=== PATIENT | male | born 1960 | race African-American/Black ===

== ENCOUNTER 2019-01-18 05:01 | Inpatient (IN) | payer MEDICAID ==
[~2019-01-18] VITALS: Ht 195.6 cm; Wt 117.5 kg
[2019-01-18] VITALS (19 sets, daily range): BP systolic 140–173; BP diastolic 73–110
[2019-01-18] MEDS ORDERED: METHYLPREDNISOLONE SOD SUCC 125 MG/2 ML VIAL IV STA (05:44)
[2019-01-18] MEDS ORDERED: IPRATROPIUM BROMIDE (0.02%) 0.5MG/2.5ML NEB HHN STA (05:44)
[2019-01-18] MEDS ORDERED: ONDANSETRON HCL 4MG/2ML INJ IV STA (05:44)
[2019-01-18] MEDS ORDERED: MAGNESIUM 2 G PREMIX 50 ML IV ONE (05:45)
[2019-01-18] MEDS ORDERED: ALBUTEROL (0.083%) 2.5MG/3ML NEB HHN SCH (06:00)
[2019-01-18 06:03] LABS: BG BASE EXCESS -2.7 mmol/L (-2.0-2.0); BG CARBOXYHEMOGLOBIN 0.9 % (0.5-1.5); BG DEOXYHEMOGLOBIN 4.5 % (0.0-5.0); BG FRACTION INSPIRED OXYGEN 40; BG HCO3 ACT 21.7 mmol/L (22.0-26.0); BG METHEMOGLOBIN 0.1 % (0.0-1.5); BG OXYGEN SATURATION 95.5 % (92.0-98.5); BG OXYHEMOGLOBIN 94.5 % (94.0-97.0); BG PCO2 36.8 mmHg (35.0-45.0); BG PH 7.389 (7.350-7.450); BG PO2 79.3 mmHg (75.0-100.0); BG SAMPLE SITE RIGHT RADIAL; BG TOTAL HEMOGLOBIN 13.7 g/dL (12.0-18.0); BG VENT MODE NASAL CANNULA
[2019-01-18 06:17] LABS: BASOPHILS % 0.4 % (0.0-2.0); EOSINOPHILS % 1.6 % (0.0-5.0); HEMATOCRIT. 40.7 % (42.0-52.0); HEMOGLOBIN. 13.4 g/dL (14.0-18.0); LYMPHOCYTES % 16.8 % (20.0-50.0); MEAN CORPUSCULAR HEMOGLOBIN 30.1 pg (28.0-32.0); MEAN CORPUSCULAR VOLUME 91.5 fL (80.0-94.0); MEAN PLATELET VOLUME 9.1 fl (7.4-10.4); MONOCYTES % 7.3 % (2.0-8.0); NEUTROPHILS % 73.9 % (40.0-76.0); PLATELET 204 x1000/uL (130-400); RED BLOOD CELL COUNT 4.44 mill/uL (4.7-6.1); RED CELL DISTRIBUTION WIDTH 14.5 % (11.6-14.6)
[2019-01-18 06:24] LABS: CHLORIDE 108 mEq/L (98-107)
[2019-01-18] MEDS ORDERED: SODIUM CHLORIDE 0.9% 1000ML BAG (SEPSIS BOLUS) IV ONE (06:30)
[2019-01-18] MEDS ORDERED: PIPERACILLIN/TAZ 3.375G PREMIX 50 ML IV ONE (06:30)
[2019-01-18] MEDS ORDERED: VANCOMYCIN 1 G PREMIX 200 ML IV ONE (06:30)
[2019-01-18] MEDS ORDERED: IPRATROPIUM/ALBUTEROL 0.5-3(2.5)MG/3ML NEB HHN PRN ×2 (07:45→12:30)
[2019-01-18] MEDS ORDERED: MAGNESIUM/ALUMINUM HYDROXIDE/SIMETHICONE 30ML UDC PO PRN (07:45)
[2019-01-18] MEDS ORDERED: ONDANSETRON HCL 4MG/2ML INJ IV PRN (07:45)
[2019-01-18] MEDS ORDERED: DOCUSATE SODIUM 100MG CAPSULE PO PRN (07:45)
[2019-01-18] MEDS ORDERED: PIPERACILLIN/TAZ 3.375G PREMIX 50 ML IV SCH (07:45)
[2019-01-18 07:54] LABS: PHOSPHORUS 3.3 mg/dL (2.5-4.9)
[2019-01-18] MEDS ORDERED: NICARDIPINE 40MG/200ML PREMIX 200 ML IV SCH (08:15)
[2019-01-18 11:10] LABS: CLARITY URINE CLEAR (CLEAR); COLOR URINE YELLOW (YELLOW); KETONES URINE NEGATIVE (NEGATIVE); LEUKOCYTE ESTERASE URINE NEGATIVE (NEGATIVE); NITRITE URINE NEGATIVE (NEGATIVE); OCCULT BLOOD URINE 1+ (NEGATIVE); PROTEIN URINE 2+ (NEGATIVE); SPECIFIC GRAVITY URINE 1.013 (1.005-1.030); UROBILINOGEN URINE 0.2 E.U./dL (0.2-1.0)
[2019-01-18 11:39] LABS: *AMPHETAMINES SCREEN URINE PRESUMTIVE POSITIVE (NEGATIVE)
[2019-01-18 11:40] LABS: *BARBITURATES SCREEN URINE NEGATIVE (NEGATIVE); *BENZODIAZEPINES SCREEN URINE NEGATIVE (NEGATIVE); *COCAINE SCREEN URINE PRESUMTIVE POSITIVE (NEGATIVE); CANNABINOID URINE SCREEN PRESUMTIVE POSITIVE (NEGATIVE); METHADONE URINE SCREEN NEGATIVE (NEGATIVE); OPIATES URINE SCREEN NEGATIVE (NEGATIVE)
[2019-01-18 11:42] LABS: PHENCYCLIDINE URINE SCREEN NEGATIVE (NEGATIVE)
[2019-01-18 12:39] LABS: BG BILEVEL POS AIRWAY PRESSURE 15/5; BG VENT RATE 16 set
[2019-01-18 12:48] LABS: CREATINE KINASE 401 IU/L (39-308)
[2019-01-18] MEDS ORDERED: FUROSEMIDE 40MG/4ML VIAL IVP NR (13:00)
[2019-01-18 13:23] LABS: BG SAMPLE SITE Right Radial
[2019-01-18 13:24] LABS: BG FRACTION INSPIRED OXYGEN 40; BG VENT MODE MASK-BIPAP; BG VENT RATE 16 set
[2019-01-18 13:25] LABS: BG BILEVEL POS AIRWAY PRESSURE 15/5; BG PCO2 39.4 mmHg (35.0-45.0); BG PH 7.305 (7.350-7.450)
[2019-01-18 13:26] LABS: BG BASE EXCESS -6.6 mmol/L (-2.0-2.0); BG CARBOXYHEMOGLOBIN 0.8 % (0.5-1.5); BG HCO3 ACT 19.2 mmol/L (22.0-26.0); BG OXYGEN SATURATION 97.9 % (92.0-98.5); BG TOTAL HEMOGLOBIN 14.5 g/dL (12.0-18.0)
[2019-01-18 13:27] LABS: BG DEOXYHEMOGLOBIN 2.1 % (0.0-5.0); BG METHEMOGLOBIN 0.1 % (0.0-1.5)
[2019-01-18] MEDS ORDERED: NITROGLYCERIN OINT 1GM/INCH UDPKT TD NR (16:45)
[2019-01-18] MEDS ORDERED: LOSARTAN POTASSIUM 50 MG TABLET PO NR (18:00)
[2019-01-18] MEDS: ENOXAPARIN 30MG/0.3ML SYR SUBCUT SCH (18:12)
[2019-01-18] MEDS ORDERED: HYDRALAZINE HCL 25MG TABLET PO NR (18:15)
[2019-01-18] MEDS ORDERED: AMLODIPINE 5MG TABLET PO NR (18:15)
[2019-01-18] MEDS: AMLODIPINE 5MG TABLET PO SCH (21:29)
[2019-01-18] MEDS: NICOTINE 14MG PATCH TD SCH (21:29)
[2019-01-18] MEDS: NICARDIPINE 50 MG in SODIUM CHLORIDE 0.9% 230 ML IV PRN (21:30)
[2019-01-18] MEDS: HYDRALAZINE HCL 25MG TABLET PO SCH (22:08)
[2019-01-18] MEDS: NITROGLYCERIN OINT 1GM/INCH UDPKT TD SCH (22:08)
[2019-01-18] MEDS: PIPERACILLIN/TAZOBACTAM 3.375 G in DEXT 5% WATER 100 ML IV SCH (22:08)
[2019-01-18] MEDS ORDERED: VANCOMYCIN 2,000 MG in DEXT 5% WATER 500 ML IV NR (23:00)
[2019-01-19] VITALS (94 sets, daily range): BP systolic 98–191; BP diastolic 55–106
[2019-01-19] MEDS: IPRATROPIUM/ALBUTEROL 0.5-3(2.5)MG/3ML NEB HHN SCH ×6 (00:10→20:48)
[2019-01-19] MEDS: ACETAMINOPHEN 325MG TABLET PO PRN ×2 (00:55→09:38)
[2019-01-19] MEDS: PIPERACILLIN/TAZOBACTAM 3.375 G in DEXT 5% WATER 100 ML IV SCH ×4 (04:58→21:01)
[2019-01-19] MEDS: NICARDIPINE 50 MG in SODIUM CHLORIDE 0.9% 230 ML IV PRN ×4 (04:59→19:42)
[2019-01-19 05:03] LABS: BASOPHILS % 0.1 % (0.0-2.0); HEMATOCRIT. 39.5 % (42.0-52.0); HEMOGLOBIN. 12.9 g/dL (14.0-18.0); LYMPHOCYTES % 8.3 % (20.0-50.0); MEAN CORPUSCULAR HEMOGLOBIN 29.8 pg (28.0-32.0); MEAN CORPUSCULAR VOLUME 91.3 fL (80.0-94.0); MEAN PLATELET VOLUME 9.3 fl (7.4-10.4); MONOCYTES % 5.7 % (2.0-8.0); NEUTROPHILS % 85.9 % (40.0-76.0); PLATELET 220 x1000/uL (130-400); RED BLOOD CELL COUNT 4.33 mill/uL (4.7-6.1); RED CELL DISTRIBUTION WIDTH 14.6 % (11.6-14.6)
[2019-01-19 05:12] LABS: CHLORIDE 107 mEq/L (98-107)
[2019-01-19 05:22] LABS: LDL CHOLESTEROL 81 mg/dL (5-100)
[2019-01-19 05:23] LABS: HDL CHOLESTEROL 54 mg/dL (40-59)
[2019-01-19] MEDS: HYDRALAZINE HCL 25MG TABLET PO SCH ×3 (05:36→21:01)
[2019-01-19] MEDS: ENOXAPARIN 30MG/0.3ML SYR SUBCUT SCH ×2 (05:36→18:10)
[2019-01-19] MEDS: NITROGLYCERIN OINT 1GM/INCH UDPKT TD SCH ×3 (05:36→21:01)
[2019-01-19] MEDS: LOSARTAN POTASSIUM 50 MG TABLET PO SCH (09:39)
[2019-01-19] MEDS: NICOTINE 14MG PATCH TD SCH (09:39)
[2019-01-19] MEDS: AMLODIPINE 5MG TABLET PO SCH ×2 (09:40→21:01)
[2019-01-19] MEDS ORDERED: FUROSEMIDE 40MG/4ML VIAL IVP NR (09:45)
[2019-01-19] MEDS: CLONIDINE 0.2MG TABLET PO SCH ×2 (14:02→22:05)
[2019-01-19] MEDS ORDERED: VANCOMYCIN 1500MG in DEXTROSE 5% WATER 250ML IV SCH (18:00)
[2019-01-20] VITALS (52 sets, daily range): BP systolic 114–165; BP diastolic 53–127
[2019-01-20] MEDS: IPRATROPIUM/ALBUTEROL 0.5-3(2.5)MG/3ML NEB HHN SCH ×6 (00:53→21:05)
[2019-01-20] MEDS: PIPERACILLIN/TAZOBACTAM 3.375 G in DEXT 5% WATER 100 ML IV SCH ×3 (03:00→16:28)
[2019-01-20] MEDS: HYDRALAZINE HCL 25MG TABLET PO SCH ×3 (05:03→22:01)
[2019-01-20] MEDS: NITROGLYCERIN OINT 1GM/INCH UDPKT TD SCH ×3 (05:03→21:49)
[2019-01-20] MEDS: CLONIDINE 0.2MG TABLET PO SCH ×3 (05:03→21:48)
[2019-01-20] MEDS: ENOXAPARIN 30MG/0.3ML SYR SUBCUT SCH ×2 (05:03→16:38)
[2019-01-20 05:35] LABS: BASOPHILS % 0.2 % (0.0-2.0); EOSINOPHILS % 0.8 % (0.0-5.0); HEMOGLOBIN. 12.7 g/dL (14.0-18.0); LYMPHOCYTES % 14.5 % (20.0-50.0); MEAN CORPUSCULAR HEMOGLOBIN 29.8 pg (28.0-32.0); MEAN CORPUSCULAR VOLUME 91.8 fL (80.0-94.0); MEAN PLATELET VOLUME 9.4 fl (7.4-10.4); MONOCYTES % 5.4 % (2.0-8.0); NEUTROPHILS % 79.1 % (40.0-76.0); PLATELET 237 x1000/uL (130-400); RED BLOOD CELL COUNT 4.25 mill/uL (4.7-6.1); RED CELL DISTRIBUTION WIDTH 14.5 % (11.6-14.6)
[2019-01-20] MEDS: NICOTINE 14MG PATCH TD SCH (09:28)
[2019-01-20] MEDS: AMLODIPINE 5MG TABLET PO SCH ×2 (09:29→21:48)
[2019-01-20] MEDS: LOSARTAN POTASSIUM 50 MG TABLET PO SCH (09:29)
[2019-01-20] MEDS: CLONIDINE 0.1MG TABLET PO PRN (11:23)
[2019-01-20] MEDS ORDERED: VANCOMYCIN 1250MG in DEXTROSE 5% WATER 250ML IV SCH (12:00)
[2019-01-20] MEDS ORDERED: GUAIFENESIN-DM 200MG-20MG/10ML UDC PO PRN (17:15)
[2019-01-20] MEDS: AZITHROMYCIN 500 MG TABLET PO SCH (17:28)
[2019-01-20] MEDS ORDERED: CEFTRIAXONE 1 G PREMIX 50 ML IV SCH (18:30)
[2019-01-20] MEDS: CEFTRIAXONE 1 G PREMIX 50 ML IV SCH (21:58)
[2019-01-21] VITALS (7 sets, daily range): BP systolic 117–162; BP diastolic 61–96
[2019-01-21] MEDS: IPRATROPIUM/ALBUTEROL 0.5-3(2.5)MG/3ML NEB HHN SCH ×6 (00:59→20:27)
[2019-01-21 05:27] LABS: VANCOMYCIN TROUGH 12.2 ug/mL (5.0-10.0)
[2019-01-21 05:28] LABS: BASOPHILS % 0.5 % (0.0-2.0); EOSINOPHILS % 1.9 % (0.0-5.0); HEMATOCRIT. 39.5 % (42.0-52.0); LYMPHOCYTES % 17.3 % (20.0-50.0); MEAN CORPUSCULAR HEMOGLOBIN 30.1 pg (28.0-32.0); MEAN CORPUSCULAR VOLUME 91.3 fL (80.0-94.0); MONOCYTES % 7.8 % (2.0-8.0); NEUTROPHILS % 72.5 % (40.0-76.0); PLATELET 242 x1000/uL (130-400); RED BLOOD CELL COUNT 4.33 mill/uL (4.7-6.1); RED CELL DISTRIBUTION WIDTH 14.7 % (11.6-14.6)
[2019-01-21] MEDS: ENOXAPARIN 30MG/0.3ML SYR SUBCUT SCH ×2 (05:48→17:11)
[2019-01-21] MEDS: CLONIDINE 0.2MG TABLET PO SCH ×3 (05:49→21:40)
[2019-01-21] MEDS: NITROGLYCERIN OINT 1GM/INCH UDPKT TD SCH ×3 (05:49→21:41)
[2019-01-21] MEDS: HYDRALAZINE HCL 25MG TABLET PO SCH ×3 (05:54→21:40)
[2019-01-21] MEDS: NICOTINE 14MG PATCH TD SCH (08:32)
[2019-01-21] MEDS: LOSARTAN POTASSIUM 50 MG TABLET PO SCH (08:32)
[2019-01-21] MEDS: AMLODIPINE 5MG TABLET PO SCH ×2 (08:32→20:13)
[2019-01-21] MEDS: FUROSEMIDE 40MG/4ML VIAL IVP SCH (10:31)
[2019-01-21 11:43] LABS: BG BASE EXCESS -0.6 mmol/L (-2.0-2.0); BG BILEVEL POS AIRWAY PRESSURE 20/5; BG CARBOXYHEMOGLOBIN 0.2 % (0.5-1.5); BG DEOXYHEMOGLOBIN 1.8 % (0.0-5.0); BG FRACTION INSPIRED OXYGEN 40; BG HCO3 ACT 25.1 mmol/L (22.0-26.0); BG METHEMOGLOBIN 0.2 % (0.0-1.5); BG OXYGEN SATURATION 98.2 % (92.0-98.5); BG OXYHEMOGLOBIN 97.8 % (94.0-97.0); BG PCO2 45.2 mmHg (35.0-45.0); BG PH 7.363 (7.350-7.450); BG PO2 125.6 mmHg (75.0-100.0); BG SAMPLE SITE LEFT RADIAL; BG TOTAL HEMOGLOBIN 14.2 g/dL (12.0-18.0); BG VENT MODE MASK - BIPAP; BG VENT RATE 16 set
[2019-01-21] MEDS: AZITHROMYCIN 500 MG TABLET PO SCH (17:11)
[2019-01-21] MEDS: CEFTRIAXONE 1 G PREMIX 50 ML IV SCH (20:16)
[2019-01-22 00:01] VITALS: BP 127/70
[2019-01-22] MEDS: IPRATROPIUM/ALBUTEROL 0.5-3(2.5)MG/3ML NEB HHN SCH ×6 (00:02→20:45)
[2019-01-22 04:00] VITALS: BP 143/86
[2019-01-22] MEDS: CLONIDINE 0.2MG TABLET PO SCH ×3 (05:46→23:21)
[2019-01-22] MEDS: HYDRALAZINE HCL 25MG TABLET PO SCH ×2 (05:46→13:09)
[2019-01-22] MEDS: ENOXAPARIN 30MG/0.3ML SYR SUBCUT SCH ×2 (05:46→17:11)
[2019-01-22] MEDS: NITROGLYCERIN OINT 1GM/INCH UDPKT TD SCH ×2 (05:47→13:10)
[2019-01-22 07:45] LABS: BASOPHILS % 0.5 % (0.0-2.0); HEMATOCRIT. 41.1 % (42.0-52.0); HEMOGLOBIN. 13.3 g/dL (14.0-18.0); LYMPHOCYTES % 20.1 % (20.0-50.0); MEAN CORPUSCULAR HEMOGLOBIN 29.7 pg (28.0-32.0); MEAN CORPUSCULAR VOLUME 91.7 fL (80.0-94.0); MEAN PLATELET VOLUME 8.9 fl (7.4-10.4); MONOCYTES % 8.5 % (2.0-8.0); NEUTROPHILS % 67.9 % (40.0-76.0); PLATELET 257 x1000/uL (130-400); RED BLOOD CELL COUNT 4.49 mill/uL (4.7-6.1); RED CELL DISTRIBUTION WIDTH 14.9 % (11.6-14.6)
[2019-01-22 08:00] VITALS: BP 143/75
[2019-01-22] MEDS: AMLODIPINE 5MG TABLET PO SCH ×2 (09:55→23:08)
[2019-01-22] MEDS: LOSARTAN POTASSIUM 50 MG TABLET PO SCH ×2 (09:55→23:08)
[2019-01-22] MEDS: NICOTINE 14MG PATCH TD SCH (09:57)
[2019-01-22 10:06] LABS: COMPLEMENT C3 125 mg/dL (82-167)
[2019-01-22] MEDS: FUROSEMIDE 40MG/4ML VIAL IVP SCH (12:24)
[2019-01-22] MEDS ORDERED: HYDRALAZINE HCL 50MG TABLET PO SCH (14:00)
[2019-01-22] MEDS: DIPHENHYDRAMINE 50MG/ML VIAL IV PRN (15:31)
[2019-01-22 15:33] VITALS: BP 170/94
[2019-01-22 16:00] VITALS: BP 168/76
[2019-01-22] MEDS: AZITHROMYCIN 500 MG TABLET PO SCH (17:10)
[2019-01-22 19:11] LABS: ANTI-NUCLEAR ANTIBODIES DIRECT Negative (Negative)
[2019-01-22 20:00] VITALS: BP 146/95
[2019-01-22] MEDS: HYDRALAZINE HCL 50MG TABLET PO SCH (23:07)
[2019-01-22] MEDS: CEFTRIAXONE 1 G PREMIX 50 ML IV SCH (23:07)
[2019-01-22] MEDS: GUAIFENESIN 600MG ER TABLET PO SCH (23:08)
[2019-01-22] MEDS: CLONIDINE 0.1MG TABLET PO PRN (23:08)
[2019-01-23] VITALS (7 sets, daily range): BP systolic 93–147; BP diastolic 58–95
[2019-01-23] MEDS: IPRATROPIUM/ALBUTEROL 0.5-3(2.5)MG/3ML NEB HHN SCH ×6 (00:10→20:48)
[2019-01-23] MEDS: DIPHENHYDRAMINE 50MG/ML VIAL IV PRN ×3 (02:17→20:30)
[2019-01-23] MEDS: CLONIDINE 0.2MG TABLET PO SCH ×3 (05:42→22:26)
[2019-01-23] MEDS: ENOXAPARIN 30MG/0.3ML SYR SUBCUT SCH ×2 (05:42→17:00)
[2019-01-23] MEDS: HYDRALAZINE HCL 50MG TABLET PO SCH ×3 (05:42→22:26)
[2019-01-23] MEDS: AMLODIPINE 5MG TABLET PO SCH ×2 (08:17→22:26)
[2019-01-23] MEDS: GUAIFENESIN 600MG ER TABLET PO SCH ×2 (08:17→22:26)
[2019-01-23] MEDS: LOSARTAN POTASSIUM 50 MG TABLET PO SCH ×2 (08:17→22:26)
[2019-01-23] MEDS: FUROSEMIDE 40MG/4ML VIAL IVP SCH ×2 (08:17→17:00)
[2019-01-23] MEDS: NICOTINE 14MG PATCH TD SCH (08:17)
[2019-01-23 16:04] LABS: BASOPHILS % 0.3 % (0.0-2.0); EOSINOPHILS % 3.2 % (0.0-5.0); HEMATOCRIT. 41.8 % (42.0-52.0); HEMOGLOBIN. 13.7 g/dL (14.0-18.0); LYMPHOCYTES % 13.7 % (20.0-50.0); MEAN CORPUSCULAR HEMOGLOBIN 29.9 pg (28.0-32.0); MEAN CORPUSCULAR VOLUME 91.3 fL (80.0-94.0); MEAN PLATELET VOLUME 9.1 fl (7.4-10.4); MONOCYTES % 6.9 % (2.0-8.0); NEUTROPHILS % 75.9 % (40.0-76.0); PLATELET 251 x1000/uL (130-400); RED BLOOD CELL COUNT 4.58 mill/uL (4.7-6.1); RED CELL DISTRIBUTION WIDTH 14.1 % (11.6-14.6)
[2019-01-23] MEDS: AZITHROMYCIN 500 MG TABLET PO SCH (17:00)
[2019-01-23] MEDS: CEFTRIAXONE 1 G PREMIX 50 ML IV SCH (20:28)
[2019-01-24] VITALS: BP 120/68
[2019-01-24] MEDS: IPRATROPIUM/ALBUTEROL 0.5-3(2.5)MG/3ML NEB HHN SCH ×6 (01:03→20:49)
[2019-01-24 04:00] VITALS: BP 108/70
[2019-01-24] MEDS: ENOXAPARIN 30MG/0.3ML SYR SUBCUT SCH ×2 (05:44→17:05)
[2019-01-24] MEDS: HYDRALAZINE HCL 50MG TABLET PO SCH ×3 (05:45→22:20)
[2019-01-24] MEDS: CLONIDINE 0.2MG TABLET PO SCH ×3 (05:45→22:20)
[2019-01-24] MEDS: DIPHENHYDRAMINE 50MG/ML VIAL IV PRN ×3 (06:23→19:41)
[2019-01-24 07:00] LABS: BASOPHILS % 0.3 % (0.0-2.0); EOSINOPHILS % 3.1 % (0.0-5.0); HEMATOCRIT. 41.8 % (42.0-52.0); HEMOGLOBIN. 13.6 g/dL (14.0-18.0); LYMPHOCYTES % 12.9 % (20.0-50.0); MEAN CORPUSCULAR HEMOGLOBIN 29.9 pg (28.0-32.0); MEAN CORPUSCULAR VOLUME 91.9 fL (80.0-94.0); MEAN PLATELET VOLUME 9.1 fl (7.4-10.4); MONOCYTES % 8.8 % (2.0-8.0); NEUTROPHILS % 74.9 % (40.0-76.0); PLATELET 261 x1000/uL (130-400); RED BLOOD CELL COUNT 4.55 mill/uL (4.7-6.1); RED CELL DISTRIBUTION WIDTH 14.6 % (11.6-14.6)
[2019-01-24 08:00] VITALS: BP 121/72
[2019-01-24] MEDS: AMLODIPINE 5MG TABLET PO SCH ×2 (08:57→20:14)
[2019-01-24] MEDS: FUROSEMIDE 40MG/4ML VIAL IVP SCH (08:57)
[2019-01-24] MEDS: GUAIFENESIN 600MG ER TABLET PO SCH ×2 (08:58→20:14)
[2019-01-24] MEDS: LOSARTAN POTASSIUM 50 MG TABLET PO SCH ×2 (08:58→20:14)
[2019-01-24] MEDS: NICOTINE 14MG PATCH TD SCH (08:58)
[2019-01-24 12:00] VITALS: BP 126/68
[2019-01-24 16:50] VITALS: BP 93/74
[2019-01-24 17:04] LABS: BG BASE EXCESS -2.4 mmol/L (-2.0-2.0); BG DEOXYHEMOGLOBIN 3.8 % (0.0-5.0); BG FRACTION INSPIRED OXYGEN 21; BG HCO3 ACT 22.7 mmol/L (22.0-26.0); BG METHEMOGLOBIN 0.3 % (0.0-1.5); BG OXYGEN SATURATION 96.2 % (92.0-98.5); BG OXYHEMOGLOBIN 95.9 % (94.0-97.0); BG PCO2 40.7 mmHg (35.0-45.0); BG PH 7.365 (7.350-7.450); BG PO2 84.9 mmHg (75.0-100.0); BG SAMPLE SITE RIGHT RADIAL; BG VENT MODE ROOM AIR
[2019-01-24] MEDS: AZITHROMYCIN 500 MG TABLET PO SCH (17:05)
[2019-01-24] MEDS: CEFTRIAXONE 1 G PREMIX 50 ML IV SCH (19:43)
[2019-01-25] MEDS: IPRATROPIUM/ALBUTEROL 0.5-3(2.5)MG/3ML NEB HHN SCH ×7 (02:33→20:07)
[2019-01-25 04:00] VITALS: BP 123/60
[2019-01-25] MEDS: HYDRALAZINE HCL 50MG TABLET PO SCH ×3 (05:19→21:11)
[2019-01-25] MEDS: CLONIDINE 0.2MG TABLET PO SCH (05:19)
[2019-01-25] MEDS: ENOXAPARIN 30MG/0.3ML SYR SUBCUT SCH ×2 (05:20→16:43)
[2019-01-25 06:05] LABS: BASOPHILS % 0.2 % (0.0-2.0); EOSINOPHILS % 2.5 % (0.0-5.0); HEMATOCRIT. 41.2 % (42.0-52.0); HEMOGLOBIN. 13.8 g/dL (14.0-18.0); LYMPHOCYTES % 13.3 % (20.0-50.0); MEAN CORPUSCULAR HEMOGLOBIN 30.8 pg (28.0-32.0); MEAN CORPUSCULAR VOLUME 91.5 fL (80.0-94.0); MEAN PLATELET VOLUME 9.1 fl (7.4-10.4); MONOCYTES % 8.6 % (2.0-8.0); NEUTROPHILS % 75.4 % (40.0-76.0); PLATELET 250 x1000/uL (130-400); RED CELL DISTRIBUTION WIDTH 14.2 % (11.6-14.6)
[2019-01-25] MEDS: GUAIFENESIN 600MG ER TABLET PO SCH ×2 (08:40→21:10)
[2019-01-25] MEDS: AMLODIPINE 5MG TABLET PO SCH (08:40)
[2019-01-25] MEDS: NICOTINE 14MG PATCH TD SCH (08:40)
[2019-01-25] MEDS: LOSARTAN POTASSIUM 50 MG TABLET PO SCH ×2 (08:40→21:11)
[2019-01-25] MEDS ORDERED: SODIUM CHLORIDE 0.9% 1,000 ML IV SCH (10:00)
[2019-01-25] MEDS: DIPHENHYDRAMINE 50MG/ML VIAL IV PRN (10:55)
[2019-01-25] MEDS: CLONIDINE 0.1MG TABLET PO SCH ×2 (14:47→21:11)
[2019-01-25] MEDS: AZITHROMYCIN 500 MG TABLET PO SCH (16:42)
[2019-01-25 20:00] VITALS: BP 130/77
[2019-01-25] MEDS: CEFTRIAXONE 1 G PREMIX 50 ML IV SCH (21:11)
[2019-01-26] MEDS: IPRATROPIUM/ALBUTEROL 0.5-3(2.5)MG/3ML NEB HHN SCH ×4 (01:22→13:31)
[2019-01-26] MEDS: CLONIDINE 0.1MG TABLET PO SCH (06:00)
[2019-01-26] MEDS: HYDRALAZINE HCL 50MG TABLET PO SCH (06:00)
[2019-01-26] MEDS: ENOXAPARIN 30MG/0.3ML SYR SUBCUT SCH (06:14)
[2019-01-26 06:37] LABS: BASOPHILS % 0.3 % (0.0-2.0); EOSINOPHILS % 2.8 % (0.0-5.0); HEMOGLOBIN. 13.2 g/dL (14.0-18.0); LYMPHOCYTES % 16.5 % (20.0-50.0); MEAN CORPUSCULAR HEMOGLOBIN 30.1 pg (28.0-32.0); MEAN CORPUSCULAR VOLUME 91.3 fL (80.0-94.0); MONOCYTES % 10.3 % (2.0-8.0); NEUTROPHILS % 70.1 % (40.0-76.0); PLATELET 260 x1000/uL (130-400); RED BLOOD CELL COUNT 4.38 mill/uL (4.7-6.1); RED CELL DISTRIBUTION WIDTH 14.1 % (11.6-14.6)
[2019-01-26 08:00] VITALS: BP 159/76
[2019-01-26] MEDS: LOSARTAN POTASSIUM 50 MG TABLET PO SCH (08:49)
[2019-01-26] MEDS: GUAIFENESIN 600MG ER TABLET PO SCH (08:49)
[2019-01-26] MEDS: NICOTINE 14MG PATCH TD SCH ×2 (08:50→08:51)
[2019-01-26] MEDS ORDERED: CLONIDINE 0.1MG TABLET PO SCH (09:00)
[2019-01-26] MEDS: DIPHENHYDRAMINE 50MG/ML VIAL IV PRN (11:00)
[2019-01-26] MEDS ORDERED: HYDRALAZINE HCL 50MG TABLET PO SCH (14:00)
[2019-01-26 15:14] VITALS: BP 130/77
== END 2019-01-26 16:20 | disposition home or self-care (01) | DRG 816 ==
LOC: ER 05:01 → MICUSO 06:00 → EDBEDREQ 06:06 → EDBEDREQTM 06:06 → EDBEDREQSVC 06:06 → ENRESERV 07:01 → CANRESERV 07:01 → EDBEDREQSVC 07:54 → ENRESERV 18:57 → 8WST 01-20 14:08
PROVIDERS: ADMIT Internal Medicine; ATTEND Internal Medicine
PROC: 5A09357 Assistance with Respiratory Ventilation, Less than 24 Consecutive Hours, Continuous Positive Airway Pressure (ICD-10-PCS; principal; 2019-01-18)
PROC: 5A09357 Assistance with Respiratory Ventilation, Less than 24 Consecutive Hours, Continuous Positive Airway Pressure (ICD-10-PCS; 2019-01-19)
PROC: 5A09357 Assistance with Respiratory Ventilation, Less than 24 Consecutive Hours, Continuous Positive Airway Pressure (ICD-10-PCS; 2019-01-20)
PROC: 5A09357 Assistance with Respiratory Ventilation, Less than 24 Consecutive Hours, Continuous Positive Airway Pressure (ICD-10-PCS; 2019-01-21)
PROC: 5A09357 Assistance with Respiratory Ventilation, Less than 24 Consecutive Hours, Continuous Positive Airway Pressure (ICD-10-PCS; 2019-01-22)
PROC: 5A09357 Assistance with Respiratory Ventilation, Less than 24 Consecutive Hours, Continuous Positive Airway Pressure (ICD-10-PCS; 2019-01-23)
PROC: 5A09357 Assistance with Respiratory Ventilation, Less than 24 Consecutive Hours, Continuous Positive Airway Pressure (ICD-10-PCS; 2019-01-24)
PROC: 5A09357 Assistance with Respiratory Ventilation, Less than 24 Consecutive Hours, Continuous Positive Airway Pressure (ICD-10-PCS; 2019-01-25)
PROC: 5A09357 Assistance with Respiratory Ventilation, Less than 24 Consecutive Hours, Continuous Positive Airway Pressure (ICD-10-PCS; 2019-01-26)
DX: T40.5X1A Poisoning by cocaine, accidental (unintentional), initial encounter (principal); J96.00 Acute respiratory failure, unspecified whether with hypoxia or hypercapnia; N17.0 Acute kidney failure with tubular necrosis; I50.43 Acute on chronic combined systolic (congestive) and diastolic (congestive) heart failure; E11.22 Type 2 diabetes mellitus with diabetic chronic kidney disease; E66.01 Morbid (severe) obesity due to excess calories; I42.9 Cardiomyopathy, unspecified; I13.0 Hypertensive heart and chronic kidney disease with heart failure and stage 1 through stage 4 chronic kidney disease, or unspecified chronic kidney disease; N18.3 Chronic kidney disease, stage 3 (moderate); R91.8 Other nonspecific abnormal finding of lung field; R74.0 Nonspecific elevation of levels of transaminase and lactic acid dehydrogenase [LDH]; R80.9 Proteinuria, unspecified; J68.0 Bronchitis and pneumonitis due to chemicals, gases, fumes and vapors; I16.1 Hypertensive emergency; N18.9 Chronic kidney disease, unspecified; F14.10 Cocaine abuse, uncomplicated; F15.10 Other stimulant abuse, uncomplicated; D64.9 Anemia, unspecified; F19.10 Other psychoactive substance abuse, uncomplicated; F10.10 Alcohol abuse, uncomplicated; F17.210 Nicotine dependence, cigarettes, uncomplicated; G47.33 Obstructive sleep apnea (adult) (pediatric); Z82.49 Family history of ischemic heart disease and other diseases of the circulatory system; Z68.30 Body mass index [BMI] 30.0-30.9, adult; Z71.6 Tobacco abuse counseling; Y92.89 Other specified places as the place of occurrence of the external cause
CPT/HCPCS: 36415; 36600; 71045; 76770; 80048; 80061; 80202; 80305; 81003; 82375; 82550; 82570; 82805; 82962; 83036; 83605; 83735; 83880; 84100; 84156; 84443; 84484; 86038; 86160; 86803; 93005; 93306; 93970; 94640; 94660; 97116; 97161; 97166; 99291; C1893; J0696; J1200; J1650; J1940; J2405; J2543; J2930; J3370; J3475; J3490; J7030; J7050; J7060; J7620

== ENCOUNTER 2019-12-04 10:57 | Emergency (ER) | payer MEDICAID ==
[~2019-12-04] VITALS: Ht 193 cm; Wt 100.0 kg
[~2019-12-04 10:57] MED LIST: ALBU18HF2 IH; HYDR-4135 MT; NIFE-32 MT
[2019-12-04] MEDS ORDERED: IPRATROPIUM BROMIDE (0.02%) 0.5MG/2.5ML NEB HHN STA (11:09)
[2019-12-04] MEDS ORDERED: METHYLPREDNISOLONE SOD SUCC 125 MG/2 ML VIAL IV STA (11:09)
[2019-12-04] MEDS ORDERED: ALBUTEROL (0.083%) 2.5MG/3ML NEB HHN STA (11:09)
[2019-12-04] MEDS ORDERED: HYDRALAZINE 20MG/ML VIAL IV ONE (11:30)
[2019-12-04 11:55] LABS: BASOPHILS % 0.6 % (0.0-2.0); EOSINOPHILS % 1.9 % (0.0-5.0); HEMATOCRIT. 42.9 % (42.0-52.0); HEMOGLOBIN. 14.1 g/dL (14.0-18.0); LYMPHOCYTES % 19.6 % (20.0-50.0); MEAN CORPUSCULAR HEMOGLOBIN 29.9 pg (28.0-32.0); MEAN CORPUSCULAR VOLUME 91.1 fL (80.0-94.0); MEAN PLATELET VOLUME 9.5 fl (7.4-10.4); MONOCYTES % 4.7 % (2.0-8.0); NEUTROPHILS % 73.2 % (40.0-76.0); PLATELET 223 x1000/uL (130-400); RED BLOOD CELL COUNT 4.71 mill/uL (4.7-6.1); RED CELL DISTRIBUTION WIDTH 15.8 % (11.6-14.6)
[2019-12-04 12:00] LABS: CHLORIDE 110 mEq/L (98-107)
[2019-12-04 16:05] VITALS: BP 186/76
== END 2019-12-04 16:05 | disposition home or self-care (01) ==
LOC: ER 10:57
DX: J44.1 Chronic obstructive pulmonary disease with (acute) exacerbation (principal); I16.0 Hypertensive urgency; J98.11 Atelectasis
CPT/HCPCS: 36415; 71045; 80053; 83880; 84484; 85025; 93005; 94644; 96374; 99285; J0360; J2930; Z7610

== ENCOUNTER 2021-04-27 04:20 | Inpatient (IN) | payer MEDICAID ==
[~2021-04-27] VITALS: Ht 185.4 cm; Wt 116.6 kg
[~2021-04-27 04:20] MED LIST changes: +ALBU6.7H9 ORI; +DILT120C88 MT; +FLUT1DIS3 INH; -HYDR-4135 MT; -NIFE-32 MT
[2021-04-27] MEDS ORDERED: KETAMINE HCL 50 MG/ML 10ML IM ONE (04:30)
[2021-04-27] MEDS ORDERED: PROPOFOL 10MG/ML 100ML 100 ML IV ONE ×2 (05:00→08:00)
[2021-04-27] MEDS ORDERED: MIDAZOLAM HCL 2 MG/2 ML VIAL IV ONE (05:00)
[2021-04-27] MEDS ORDERED: METHYLPREDNISOLONE SOD SUCC 125 MG/2 ML VIAL IV STA (05:10)
[2021-04-27] MEDS ORDERED: IPRATROPIUM BROMIDE (0.02%) 0.5MG/2.5ML NEB HHN STA (05:10)
[2021-04-27] MEDS ORDERED: SUCCINYLCHOLINE CHLORIDE 200MG/10ML IV ONE ×2 (05:15→08:00)
[2021-04-27] MEDS ORDERED: MIDAZOLAM HCL 50 MG in DEXTROSE 5% WATER 40 ML IV ONE (05:15)
[2021-04-27] MEDS ORDERED: MAGNESIUM 2 G PREMIX 50 ML IV ONE (05:15)
[2021-04-27] MEDS ORDERED: ETOMIDATE 2MG/ML 10ML VIAL IV ONE ×2 (05:15→08:00)
[2021-04-27] MEDS ORDERED: ALBUTEROL (0.083%) 2.5MG/3ML NEB HHN SCH (05:30)
[2021-04-27] MEDS ORDERED: MIDAZOLAM 100MG/100ML PREMIX IV PRN ×2 (05:30→15:00)
[2021-04-27 05:37] LABS: BASOPHILS % 0.3 % (0.0-2.0); EOSINOPHILS % 0.9 % (0.0-5.0); HEMATOCRIT. 40.3 % (42.0-52.0); LYMPHOCYTES % 15.5 % (20.0-50.0); MEAN CORPUSCULAR HEMOGLOBIN 29.5 pg (28.0-32.0); MEAN PLATELET VOLUME 8.7 fl (7.4-10.4); NEUTROPHILS % 76.3 % (40.0-76.0); PLATELET 256 x1000/uL (130-400); RED BLOOD CELL COUNT 4.43 mill/uL (4.7-6.1)
[2021-04-27] MEDS ORDERED: VASOPRESSIN 20 UNIT in SODIUM CHLORIDE 0.9% 99 ML STA (05:41)
[2021-04-27] MEDS ORDERED: NOREPINEPHRINE 8MG/250ML PMX 250 ML IV STA (05:41)
[2021-04-27 05:51] LABS: CHLORIDE 108 mEq/L (98-107)
[2021-04-27 05:56] LABS: BG BASE EXCESS -3.8 mmol/L (-2.0-2.0); BG DEOXYHEMOGLOBIN 12.4 % (0.0-5.0); BG FRACTION INSPIRED OXYGEN 100; BG METHEMOGLOBIN 0.4 % (0.0-1.5); BG OXYGEN SATURATION 87.4 % (92.0-98.5); BG OXYHEMOGLOBIN 86.2 % (94.0-97.0); BG PCO2 55.1 mmHg (35.0-45.0); BG PH 7.257 (7.350-7.450); BG PO2 57.7 mmHg (75.0-100.0); BG SAMPLE SITE LEFT RADIAL; BG TOTAL HEMOGLOBIN 13.9 g/dL (12.0-18.0); BG TOTAL RESPIRATORY RATE 20 b/min; BG VENT MODE VENT - AC
[2021-04-27] MEDS ORDERED: SODIUM CHLORIDE 0.9% 10ML VIAL ONE (08:00)
[2021-04-27] MEDS ORDERED: VECURONIUM BROMIDE 10 MG/VIAL IV ONE (08:00)
[2021-04-27] MEDS: PANTOPRAZOLE SODIUM 40 MG/VIAL IV SCH (10:38)
[2021-04-27] MEDS: MIDODRINE HCL 5MG TABLET PO SCH ×2 (10:38→14:13)
[2021-04-27] MEDS: ENOXAPARIN 40MG/0.4ML SYR SUBCUT SCH (10:38)
[2021-04-27] MEDS: SODIUM CHLORIDE 0.45% 1,000 ML IV SCH (10:39)
[2021-04-27] MEDS ORDERED: IPRATROPIUM/ALBUTEROL 0.5-3(2.5)MG/3ML NEB HHN PRN (11:30)
[2021-04-27] MEDS ORDERED: MIDAZOLAM HCL 100 MG in SODIUM CHLORIDE 0.9% 80 ML IV PRN (11:30)
[2021-04-27] MEDS ORDERED: FENTANYL CITRATE/PF 2,500 MCG in SODIUM CHLORIDE 0.9% 200 ML IV PRN (11:30)
[2021-04-27] MEDS ORDERED: LEVOFLOXACIN 750MG PREMIX 150 ML IV SCH (12:00)
[2021-04-27] MEDS: METHYLPREDNISOLONE SOD SUCC 40 MG/ML VIAL IV SCH ×2 (13:42→22:05)
[2021-04-27] MEDS ORDERED: DEXTROSE 50% WATER 50ML SYRINGE IV PRN (18:45)
[2021-04-27] MEDS: AMLODIPINE 10MG TABLET PO SCH (19:30)
[2021-04-27] MEDS: IPRATROPIUM/ALBUTEROL 0.5-3(2.5)MG/3ML NEB HHN SCH (20:03)
[2021-04-27] MEDS: HYDRALAZINE 20MG/ML VIAL IV PRN (20:31)
[2021-04-27] MEDS ORDERED: BLOOD SUGAR DIAGNOSTIC STRIP TEST SCH (21:00)
[2021-04-27] MEDS ORDERED: INSULIN LISPRO 100 UNITS/ML SUBCUT SCH (21:00)
[2021-04-27 22:55] VITALS: BP 155/85
[2021-04-27 23:00] VITALS: BP 152/88
[2021-04-27 23:15] VITALS: BP 138/72
[2021-04-27 23:30] VITALS: BP 134/68
[2021-04-27 23:35] VITALS: BP 155/85
[2021-04-27 23:45] VITALS: BP 119/61
[2021-04-28] VITALS (73 sets, daily range): BP systolic 104–168; BP diastolic 54–95
[2021-04-28 00:06] LABS: *AMPHETAMINES SCREEN URINE PRESUMTIVE POSITIVE (NEGATIVE); *BARBITURATES SCREEN URINE NEGATIVE (NEGATIVE); *BENZODIAZEPINES SCREEN URINE PRESUMTIVE POSITIVE (NEGATIVE); *COCAINE SCREEN URINE PRESUMTIVE POSITIVE (NEGATIVE); CANNABINOID URINE SCREEN PRESUMTIVE POSITIVE (NEGATIVE); METHADONE URINE SCREEN NEGATIVE (NEGATIVE); OPIATES URINE SCREEN NEGATIVE (NEGATIVE); PHENCYCLIDINE URINE SCREEN PRESUMTIVE POSITIVE (NEGATIVE)
[2021-04-28] MEDS: IPRATROPIUM/ALBUTEROL 0.5-3(2.5)MG/3ML NEB HHN SCH ×6 (00:15→19:54)
[2021-04-28] MEDS: FENTANYL CITRATE/PF 2,500 MCG in SODIUM CHLORIDE 0.9% 200 ML IV PRN (00:21)
[2021-04-28] MEDS: BLOOD SUGAR DIAGNOSTIC STRIP TEST SCH ×4 (00:31→18:26)
[2021-04-28] MEDS: MIDAZOLAM HCL 100 MG in SODIUM CHLORIDE 0.9% 80 ML IV PRN (03:58)
[2021-04-28] MEDS: SODIUM CHLORIDE 0.45% 1,000 ML IV SCH ×2 (05:26→20:17)
[2021-04-28] MEDS: METHYLPREDNISOLONE SOD SUCC 40 MG/ML VIAL IV SCH ×3 (05:30→21:44)
[2021-04-28] MEDS: INSULIN LISPRO 100 UNITS/ML SUBCUT SCH ×4 (05:30→18:00)
[2021-04-28 05:39] LABS: HEMATOCRIT. 40.7 % (42.0-52.0); HEMOGLOBIN. 12.9 g/dL (14.0-18.0); MEAN CORPUSCULAR HEMOGLOBIN 28.8 pg (28.0-32.0); MEAN CORPUSCULAR VOLUME 90.6 fL (80.0-94.0); MEAN PLATELET VOLUME 8.9 fl (7.4-10.4); PLATELET 294 x1000/uL (130-400); RED CELL DISTRIBUTION WIDTH 14.6 % (11.6-14.6)
[2021-04-28] MEDS: MIDODRINE HCL 5MG TABLET PO SCH ×2 (08:21→12:20)
[2021-04-28] MEDS: ENOXAPARIN 40MG/0.4ML SYR SUBCUT SCH (08:29)
[2021-04-28] MEDS: PANTOPRAZOLE SODIUM 40 MG/VIAL IV SCH (08:29)
[2021-04-28] MEDS: AMLODIPINE 10MG TABLET PO SCH (08:56)
[2021-04-28 09:46] LABS: BG BASE EXCESS -5.7 mmol/L (-2.0-2.0); BG CARBOXYHEMOGLOBIN 0.3 % (0.5-1.5); BG DEOXYHEMOGLOBIN 2.4 % (0.0-5.0); BG FRACTION INSPIRED OXYGEN 85; BG HCO3 ACT 21.1 mmol/L (22.0-26.0); BG METHEMOGLOBIN 0.3 % (0.0-1.5); BG OXYGEN SATURATION 97.6 % (92.0-98.5); BG PCO2 46.4 mmHg (35.0-45.0); BG PH 7.276 (7.350-7.450); BG PO2 102.2 mmHg (75.0-100.0); BG SAMPLE SITE RIGHT RADIAL; BG TOTAL HEMOGLOBIN 13.9 g/dL (12.0-18.0); BG VENT MODE VENT - AC
[2021-04-28 11:33] LABS: CREATINE KINASE 267 IU/L (39-308)
[2021-04-28 11:48] LABS: PLATELET ESTIMATE NORMAL
[2021-04-28] MEDS: HYDRALAZINE 20MG/ML VIAL IV PRN (20:18)
[2021-04-29] VITALS (96 sets, daily range): BP systolic 128–172; BP diastolic 66–100
[2021-04-29] MEDS: IPRATROPIUM/ALBUTEROL 0.5-3(2.5)MG/3ML NEB HHN SCH ×6 (00:13→20:09)
[2021-04-29] MEDS: BLOOD SUGAR DIAGNOSTIC STRIP TEST SCH ×4 (00:25→18:09)
[2021-04-29] MEDS: METHYLPREDNISOLONE SOD SUCC 40 MG/ML VIAL IV SCH ×3 (05:57→21:25)
[2021-04-29] MEDS: SODIUM CHLORIDE 0.45% 1,000 ML IV SCH ×2 (05:58→21:25)
[2021-04-29] MEDS: INSULIN LISPRO 100 UNITS/ML SUBCUT SCH ×4 (05:58→18:00)
[2021-04-29 06:14] LABS: HEMATOCRIT. 37.4 % (42.0-52.0); HEMOGLOBIN. 12.3 g/dL (14.0-18.0); LYMPHOCYTES % 8.3 % (20.0-50.0); MEAN CORPUSCULAR HEMOGLOBIN 29.6 pg (28.0-32.0); MEAN CORPUSCULAR VOLUME 89.6 fL (80.0-94.0); MEAN PLATELET VOLUME 8.8 fl (7.4-10.4); MONOCYTES % 5.9 % (2.0-8.0); NEUTROPHILS % 85.8 % (40.0-76.0); PLATELET 253 x1000/uL (130-400); RED BLOOD CELL COUNT 4.17 mill/uL (4.7-6.1); RED CELL DISTRIBUTION WIDTH 14.3 % (11.6-14.6)
[2021-04-29] MEDS: ENOXAPARIN 40MG/0.4ML SYR SUBCUT SCH (08:43)
[2021-04-29] MEDS: PANTOPRAZOLE SODIUM 40 MG/VIAL IV SCH (08:43)
[2021-04-29] MEDS: AMLODIPINE 10MG TABLET PO SCH (08:44)
[2021-04-29] MEDS: MIDAZOLAM HCL 100 MG in SODIUM CHLORIDE 0.9% 80 ML IV PRN (08:58)
[2021-04-29] MEDS: HYDRALAZINE 20MG/ML VIAL IV PRN (09:19)
[2021-04-29] MEDS: FUROSEMIDE 40MG/4ML VIAL IVP SCH (09:42)
[2021-04-29 10:28] LABS: BG CARBOXYHEMOGLOBIN 0.4 % (0.5-1.5); BG DEOXYHEMOGLOBIN 4.8 % (0.0-5.0); BG FRACTION INSPIRED OXYGEN 60; BG HCO3 ACT 21.8 mmol/L (22.0-26.0); BG METHEMOGLOBIN 0.3 % (0.0-1.5); BG OXYGEN SATURATION 95.2 % (92.0-98.5); BG OXYHEMOGLOBIN 94.5 % (94.0-97.0); BG PCO2 42.5 mmHg (35.0-45.0); BG PH 7.328 (7.350-7.450); BG PO2 76.7 mmHg (75.0-100.0); BG SAMPLE SITE RIGHT RADIAL; BG TOTAL HEMOGLOBIN 13.6 g/dL (12.0-18.0); BG TOTAL RESPIRATORY RATE 20 b/min; BG VENT MODE VENT - AC
[2021-04-29 10:42] LABS: CREATINE KINASE 192 IU/L (39-308)
[2021-04-29] MEDS ORDERED: PIPERACILLIN/TAZ 3.375G PREMIX 50 ML IV SCH (11:00)
[2021-04-29 11:33] LABS: CLARITY URINE CLOUDY (CLEAR); COLOR URINE YELLOW (YELLOW); KETONES URINE NEGATIVE (NEGATIVE); LEUKOCYTE ESTERASE URINE TRACE (NEGATIVE); NITRITE URINE NEGATIVE (NEGATIVE); OCCULT BLOOD URINE NEGATIVE (NEGATIVE); PH URINE 5.5 (4.5-8.0); PROTEIN URINE TRACE (NEGATIVE); SPECIFIC GRAVITY URINE 1.013 (1.005-1.030); UROBILINOGEN URINE 0.2 E.U./dL (0.2-1.0)
[2021-04-29] MEDS: PIPERACILLIN/TAZOBACTAM 3.375 G in DEXTROSE 5% WATER 50 ML IV SCH ×2 (12:46→21:25)
[2021-04-29] MEDS: LEVOFLOXACIN 750MG PREMIX 150 ML IV SCH (14:14)
[2021-04-30] VITALS (97 sets, daily range): BP systolic 120–165; BP diastolic 62–106
[2021-04-30] MEDS: BLOOD SUGAR DIAGNOSTIC STRIP TEST SCH ×5 (00:40→23:20)
[2021-04-30] MEDS: HYDRALAZINE 20MG/ML VIAL IV PRN (01:23)
[2021-04-30] MEDS: IPRATROPIUM/ALBUTEROL 0.5-3(2.5)MG/3ML NEB HHN SCH ×5 (02:08→20:24)
[2021-04-30] MEDS: MIDAZOLAM HCL 100 MG in SODIUM CHLORIDE 0.9% 80 ML IV PRN ×2 (05:16→14:47)
[2021-04-30 05:58] LABS: HEMATOCRIT. 36.2 % (42.0-52.0); HEMOGLOBIN. 11.9 g/dL (14.0-18.0); MEAN CORPUSCULAR HEMOGLOBIN 29.2 pg (28.0-32.0); MEAN PLATELET VOLUME 8.8 fl (7.4-10.4); PLATELET 273 x1000/uL (130-400); RED BLOOD CELL COUNT 4.07 mill/uL (4.7-6.1); RED CELL DISTRIBUTION WIDTH 14.5 % (11.6-14.6)
[2021-04-30] MEDS: METHYLPREDNISOLONE SOD SUCC 40 MG/ML VIAL IV SCH ×3 (06:16→21:47)
[2021-04-30] MEDS: INSULIN LISPRO 100 UNITS/ML SUBCUT SCH ×5 (06:17→23:24)
[2021-04-30] MEDS ORDERED: SODIUM POLYSTYRENE SULFONATE 15 G/60 ML BOT PO NR (07:15)
[2021-04-30 07:54] LABS: BG BASE EXCESS -0.6 mmol/L (-2.0-2.0); BG CARBOXYHEMOGLOBIN 0.3 % (0.5-1.5); BG DEOXYHEMOGLOBIN 2.7 % (0.0-5.0); BG HCO3 ACT 25.2 mmol/L (22.0-26.0); BG METHEMOGLOBIN 0.4 % (0.0-1.5); BG OXYGEN SATURATION 97.3 % (92.0-98.5); BG OXYHEMOGLOBIN 96.6 % (94.0-97.0); BG PCO2 46.2 mmHg (35.0-45.0); BG PH 7.355 (7.350-7.450); BG PO2 98.3 mmHg (75.0-100.0); BG SAMPLE SITE RIGHT RADIAL; BG VENT MODE VENT - AC
[2021-04-30] MEDS: PANTOPRAZOLE SODIUM 40 MG/VIAL IV SCH (08:20)
[2021-04-30] MEDS: FUROSEMIDE 40MG/4ML VIAL IVP SCH (08:20)
[2021-04-30] MEDS: PIPERACILLIN/TAZOBACTAM 3.375 G in DEXTROSE 5% WATER 50 ML IV SCH ×2 (08:20→21:47)
[2021-04-30] MEDS: AMLODIPINE 10MG TABLET PO SCH (08:20)
[2021-04-30] MEDS: ENOXAPARIN 40MG/0.4ML SYR SUBCUT SCH (08:20)
[2021-04-30 10:21] LABS: PLATELET ESTIMATE NORMAL
[2021-04-30 14:29] LABS: BG BASE EXCESS 0.1 mmol/L (-2.0-2.0); BG CARBOXYHEMOGLOBIN 0.3 % (0.5-1.5); BG HCO3 ACT 25.8 mmol/L (22.0-26.0); BG OXYHEMOGLOBIN 93.7 % (94.0-97.0); BG PCO2 46.1 mmHg (35.0-45.0); BG PH 7.366 (7.350-7.450); BG PO2 75.3 mmHg (75.0-100.0); BG SAMPLE SITE RIGHT RADIAL; BG TOTAL HEMOGLOBIN 12.7 g/dL (12.0-18.0); BG VENT MODE VENT - SIMV
[2021-04-30] MEDS: PROPOFOL 10MG/ML 100ML 100 ML IV PRN (16:27)
[2021-05-01] VITALS (98 sets, daily range): BP systolic 115–156; BP diastolic 66–98
[2021-05-01] MEDS: IPRATROPIUM/ALBUTEROL 0.5-3(2.5)MG/3ML NEB HHN SCH ×5 (00:10→20:25)
[2021-05-01] MEDS: MIDAZOLAM HCL 100 MG in SODIUM CHLORIDE 0.9% 80 ML IV PRN (00:55)
[2021-05-01] MEDS: PROPOFOL 10MG/ML 100ML 100 ML IV PRN ×3 (00:56→16:00)
[2021-05-01] MEDS: METHYLPREDNISOLONE SOD SUCC 40 MG/ML VIAL IV SCH ×3 (05:15→21:25)
[2021-05-01] MEDS: BLOOD SUGAR DIAGNOSTIC STRIP TEST SCH ×3 (05:32→18:00)
[2021-05-01] MEDS: INSULIN LISPRO 100 UNITS/ML SUBCUT SCH ×3 (05:40→19:17)
[2021-05-01 06:03] LABS: HEMATOCRIT. 35.7 % (42.0-52.0); HEMOGLOBIN. 11.6 g/dL (14.0-18.0); MEAN CORPUSCULAR VOLUME 89.2 fL (80.0-94.0); MEAN PLATELET VOLUME 8.6 fl (7.4-10.4); PLATELET 275 x1000/uL (130-400); RED CELL DISTRIBUTION WIDTH 14.6 % (11.6-14.6)
[2021-05-01 06:31] LABS: PHOSPHORUS 4.1 mg/dL (2.5-4.9)
[2021-05-01] MEDS: PANTOPRAZOLE SODIUM 40 MG/VIAL IV SCH (08:27)
[2021-05-01] MEDS: PIPERACILLIN/TAZOBACTAM 3.375 G in DEXTROSE 5% WATER 50 ML IV SCH ×2 (08:27→21:25)
[2021-05-01] MEDS: ENOXAPARIN 40MG/0.4ML SYR SUBCUT SCH (08:28)
[2021-05-01] MEDS: FUROSEMIDE 40MG/4ML VIAL IVP SCH (08:28)
[2021-05-01] MEDS: AMLODIPINE 10MG TABLET PO SCH (08:29)
[2021-05-01 09:07] LABS: ANTI-NUCLEAR ANTIBODIES DIRECT Positive (Negative)
[2021-05-01 10:51] LABS: PLATELET ESTIMATE NORMAL
[2021-05-01] MEDS: FENTANYL CITRATE/PF 2,500 MCG in SODIUM CHLORIDE 0.9% 200 ML IV PRN (12:33)
[2021-05-01 13:56] LABS: BG BASE EXCESS 1.5 mmol/L (-2.0-2.0); BG CARBOXYHEMOGLOBIN 0.3 % (0.5-1.5); BG DEOXYHEMOGLOBIN 1.1 % (0.0-5.0); BG FRACTION INSPIRED OXYGEN 100; BG HCO3 ACT 26.8 mmol/L (22.0-26.0); BG METHEMOGLOBIN 0.4 % (0.0-1.5); BG OXYGEN SATURATION 98.9 % (92.0-98.5); BG OXYHEMOGLOBIN 98.2 % (94.0-97.0); BG PCO2 44.9 mmHg (35.0-45.0); BG PH 7.394 (7.350-7.450); BG PO2 172.9 mmHg (75.0-100.0); BG SAMPLE SITE RIGHT RADIAL; BG TOTAL HEMOGLOBIN 12.5 g/dL (12.0-18.0); BG VENT MODE VENT - AC
[2021-05-01] MEDS: LEVOFLOXACIN 750MG PREMIX 150 ML IV SCH (15:25)
[2021-05-02] VITALS (92 sets, daily range): BP systolic 99–156; BP diastolic 58–98
[2021-05-02] MEDS: BLOOD SUGAR DIAGNOSTIC STRIP TEST SCH ×5 (00:13→23:06)
[2021-05-02] MEDS: INSULIN LISPRO 100 UNITS/ML SUBCUT SCH ×5 (00:16→23:12)
[2021-05-02] MEDS: IPRATROPIUM/ALBUTEROL 0.5-3(2.5)MG/3ML NEB HHN SCH ×7 (00:19→23:38)
[2021-05-02] MEDS: PROPOFOL 10MG/ML 100ML 100 ML IV PRN ×2 (02:39→08:26)
[2021-05-02] MEDS: METHYLPREDNISOLONE SOD SUCC 40 MG/ML VIAL IV SCH ×3 (05:23→21:23)
[2021-05-02 05:32] LABS: HEMATOCRIT. 39.1 % (42.0-52.0); HEMOGLOBIN. 12.6 g/dL (14.0-18.0); MEAN CORPUSCULAR HEMOGLOBIN 28.9 pg (28.0-32.0); MEAN CORPUSCULAR VOLUME 89.6 fL (80.0-94.0); MEAN PLATELET VOLUME 8.7 fl (7.4-10.4); PLATELET 305 x1000/uL (130-400); RED BLOOD CELL COUNT 4.36 mill/uL (4.7-6.1); RED CELL DISTRIBUTION WIDTH 14.5 % (11.6-14.6)
[2021-05-02] MEDS: PIPERACILLIN/TAZOBACTAM 3.375 G in DEXTROSE 5% WATER 50 ML IV SCH ×3 (08:20→21:23)
[2021-05-02] MEDS: FUROSEMIDE 40MG/4ML VIAL IVP SCH (08:20)
[2021-05-02] MEDS: PANTOPRAZOLE SODIUM 40 MG/VIAL IV SCH (08:20)
[2021-05-02] MEDS: AMLODIPINE 10MG TABLET PO SCH (08:20)
[2021-05-02] MEDS: ENOXAPARIN 40MG/0.4ML SYR SUBCUT SCH (08:22)
[2021-05-02] MEDS: DOCUSATE SODIUM SUGAR FREE 100MG/10ML UDC NG SCH (08:29)
[2021-05-02 08:40] LABS: BG BASE EXCESS 1.7 mmol/L (-2.0-2.0); BG CARBOXYHEMOGLOBIN 0.1 % (0.5-1.5); BG DEOXYHEMOGLOBIN 2.2 % (0.0-5.0); BG FRACTION INSPIRED OXYGEN 80; BG METHEMOGLOBIN 0.4 % (0.0-1.5); BG OXYGEN SATURATION 97.8 % (92.0-98.5); BG OXYHEMOGLOBIN 97.3 % (94.0-97.0); BG PCO2 45.2 mmHg (35.0-45.0); BG PH 7.394 (7.350-7.450); BG PO2 107.7 mmHg (75.0-100.0); BG SAMPLE SITE RIGHT RADIAL; BG TOTAL HEMOGLOBIN 12.7 g/dL (12.0-18.0); BG VENT MODE VENT - AC
[2021-05-02] MEDS: FENTANYL CITRATE/PF 2,500 MCG in SODIUM CHLORIDE 0.9% 200 ML IV PRN ×2 (08:58→20:04)
[2021-05-02 15:01] LABS: BG BASE EXCESS 0.2 mmol/L (-2.0-2.0); BG CARBOXYHEMOGLOBIN 0.2 % (0.5-1.5); BG DEOXYHEMOGLOBIN 3.2 % (0.0-5.0); BG FRACTION INSPIRED OXYGEN 70; BG HCO3 ACT 26.4 mmol/L (22.0-26.0); BG METHEMOGLOBIN 0.4 % (0.0-1.5); BG OXYGEN SATURATION 96.8 % (92.0-98.5); BG OXYHEMOGLOBIN 96.2 % (94.0-97.0); BG PCO2 48.9 mmHg (35.0-45.0); BG PO2 94.3 mmHg (75.0-100.0); BG SAMPLE SITE RIGHT RADIAL; BG VENT MODE VENT - AC
[2021-05-02 16:55] LABS: PLATELET ESTIMATE NORMAL
[2021-05-02] MEDS: PROPOFOL 10MG/ML 100ML 100 ML IV SCH (20:03)
[2021-05-02] MEDS: ACETAMINOPHEN 650MG/20.3ML UDC PO PRN (21:23)
[2021-05-03] VITALS (73 sets, daily range): BP systolic 114–173; BP diastolic 59–113
[2021-05-03] MEDS: IPRATROPIUM/ALBUTEROL 0.5-3(2.5)MG/3ML NEB HHN SCH ×5 (03:37→20:58)
[2021-05-03] MEDS: FENTANYL CITRATE/PF 2,500 MCG in SODIUM CHLORIDE 0.9% 200 ML IV PRN ×2 (04:23→15:51)
[2021-05-03] MEDS: PROPOFOL 10MG/ML 100ML 100 ML IV SCH (05:59)
[2021-05-03 06:12] LABS: HEMATOCRIT. 39.8 % (42.0-52.0); HEMOGLOBIN. 12.4 g/dL (14.0-18.0); MEAN CORPUSCULAR HEMOGLOBIN 28.2 pg (28.0-32.0); MEAN CORPUSCULAR VOLUME 90.3 fL (80.0-94.0); MEAN PLATELET VOLUME 8.8 fl (7.4-10.4); PLATELET 301 x1000/uL (130-400); RED BLOOD CELL COUNT 4.41 mill/uL (4.7-6.1); RED CELL DISTRIBUTION WIDTH 14.7 % (11.6-14.6)
[2021-05-03] MEDS: PIPERACILLIN/TAZOBACTAM 3.375 G in DEXTROSE 5% WATER 50 ML IV SCH ×3 (06:27→22:31)
[2021-05-03] MEDS: METHYLPREDNISOLONE SOD SUCC 40 MG/ML VIAL IV SCH ×2 (06:27→16:40)
[2021-05-03] MEDS: BLOOD SUGAR DIAGNOSTIC STRIP TEST SCH ×3 (06:28→17:18)
[2021-05-03] MEDS: INSULIN LISPRO 100 UNITS/ML SUBCUT SCH ×3 (06:28→17:25)
[2021-05-03] MEDS ORDERED: SODIUM POLYSTYRENE SULFONATE 15 G/60 ML BOT PO SCH (08:00)
[2021-05-03] MEDS: ENOXAPARIN 40MG/0.4ML SYR SUBCUT SCH (08:54)
[2021-05-03] MEDS: PANTOPRAZOLE SODIUM 40 MG/VIAL IV SCH (08:54)
[2021-05-03] MEDS: DOCUSATE SODIUM SUGAR FREE 100MG/10ML UDC NG SCH (08:54)
[2021-05-03] MEDS: AMLODIPINE 10MG TABLET PO SCH (08:54)
[2021-05-03] MEDS: FUROSEMIDE 40MG/4ML VIAL IVP SCH (08:54)
[2021-05-03] MEDS ORDERED: POTASSIUM CHLORIDE INJ 40 MEQ in DEXT 5% WATER 250 ML IV SCH (09:00)
[2021-05-03 09:07] LABS: BG BASE EXCESS 1.1 mmol/L (-2.0-2.0); BG CARBOXYHEMOGLOBIN 0.3 % (0.5-1.5); BG DEOXYHEMOGLOBIN 2.7 % (0.0-5.0); BG FRACTION INSPIRED OXYGEN 70; BG HCO3 ACT 27.7 mmol/L (22.0-26.0); BG OXYGEN SATURATION 97.3 % (92.0-98.5); BG PCO2 52.1 mmHg (35.0-45.0); BG PH 7.343 (7.350-7.450); BG PO2 104.5 mmHg (75.0-100.0); BG SAMPLE SITE LEFT RADIAL; BG TOTAL HEMOGLOBIN 13.3 g/dL (12.0-18.0); BG TOTAL RESPIRATORY RATE 22 b/min; BG VENT MODE VENT - AC
[2021-05-03 10:57] LABS: PLATELET ESTIMATE NORMAL
[2021-05-03 11:13] LABS: BG BASE EXCESS 0.5 mmol/L (-2.0-2.0); BG CARBOXYHEMOGLOBIN 0.3 % (0.5-1.5); BG DEOXYHEMOGLOBIN 4.1 % (0.0-5.0); BG FRACTION INSPIRED OXYGEN 50; BG HCO3 ACT 28.5 mmol/L (22.0-26.0); BG METHEMOGLOBIN 0.4 % (0.0-1.5); BG OXYGEN SATURATION 95.9 % (92.0-98.5); BG OXYHEMOGLOBIN 95.2 % (94.0-97.0); BG PCO2 61.3 mmHg (35.0-45.0); BG PH 7.286 (7.350-7.450); BG PO2 90.5 mmHg (75.0-100.0); BG SAMPLE SITE RIGHT RADIAL; BG TOTAL HEMOGLOBIN 13.6 g/dL (12.0-18.0); BG VENT MODE VENT - CPAP
[2021-05-04] VITALS (70 sets, daily range): BP systolic 63–192; BP diastolic 20–133
[2021-05-04] MEDS: FENTANYL CITRATE/PF 2,500 MCG in SODIUM CHLORIDE 0.9% 200 ML IV PRN (00:25)
[2021-05-04] MEDS: INSULIN LISPRO 100 UNITS/ML SUBCUT SCH ×4 (00:29→17:35)
[2021-05-04] MEDS: BLOOD SUGAR DIAGNOSTIC STRIP TEST SCH ×4 (00:31→17:21)
[2021-05-04] MEDS: IPRATROPIUM/ALBUTEROL 0.5-3(2.5)MG/3ML NEB HHN SCH ×6 (00:42→21:09)
[2021-05-04] MEDS: PIPERACILLIN/TAZOBACTAM 3.375 G in DEXTROSE 5% WATER 50 ML IV SCH ×3 (06:16→21:42)
[2021-05-04 06:19] LABS: PHOSPHORUS 6.6 mg/dL (2.5-4.9)
[2021-05-04 06:30] LABS: BASOPHILS % 0.1 % (0.0-2.0); EOSINOPHILS % 0.1 % (0.0-5.0); HEMATOCRIT. 41.6 % (42.0-52.0); LYMPHOCYTES % 9.1 % (20.0-50.0); MEAN CORPUSCULAR HEMOGLOBIN 28.5 pg (28.0-32.0); MEAN CORPUSCULAR VOLUME 91.5 fL (80.0-94.0); MEAN PLATELET VOLUME 8.7 fl (7.4-10.4); MONOCYTES % 5.4 % (2.0-8.0); NEUTROPHILS % 85.3 % (40.0-76.0); PLATELET 305 x1000/uL (130-400); RED BLOOD CELL COUNT 4.55 mill/uL (4.7-6.1); RED CELL DISTRIBUTION WIDTH 14.8 % (11.6-14.6)
[2021-05-04] MEDS: METHYLPREDNISOLONE SOD SUCC 40 MG/ML VIAL IV SCH ×4 (08:12→23:00)
[2021-05-04] MEDS: FUROSEMIDE 40MG/4ML VIAL IVP SCH (08:12)
[2021-05-04] MEDS: DOCUSATE SODIUM SUGAR FREE 100MG/10ML UDC NG SCH (08:12)
[2021-05-04] MEDS: AMLODIPINE 10MG TABLET PO SCH (08:12)
[2021-05-04] MEDS: PANTOPRAZOLE SODIUM 40 MG/VIAL IV SCH (08:12)
[2021-05-04] MEDS: ENOXAPARIN 40MG/0.4ML SYR SUBCUT SCH (08:12)
[2021-05-04 08:19] LABS: BG SAMPLE SITE RIGHT RADIAL; BG TIDAL VOLUME(mL) 500 mL; BG VENT MODE VENT/SIMV; BG VENT RATE 10 set
[2021-05-04 08:20] LABS: BG BASE EXCESS -0.9 mmol/L (-2.0-2.0); BG HCO3 ACT 27.5 mmol/L (22.0-26.0); BG PCO2 62.8 mmHg (35.0-45.0); BG PO2 86.5 mmHg (75.0-100.0)
[2021-05-04 08:21] LABS: BG CARBOXYHEMOGLOBIN 0.1 % (0.5-1.5); BG DEOXYHEMOGLOBIN 4.5 % (0.0-5.0); BG METHEMOGLOBIN 0.3 % (0.0-1.5); BG OXYGEN SATURATION 95.5 % (92.0-98.5); BG OXYHEMOGLOBIN 95.1 % (94.0-97.0)
[2021-05-04] MEDS: METOPROLOL TARTRATE 25MG TABLET PO SCH ×2 (08:43→21:42)
[2021-05-04] MEDS: LORAZEPAM 2MG/ML CPJ IV PRN ×2 (11:07→21:41)
[2021-05-04 11:20] LABS: BG BASE EXCESS -0.8 mmol/L (-2.0-2.0); BG CARBOXYHEMOGLOBIN 0.4 % (0.5-1.5); BG DEOXYHEMOGLOBIN 5.3 % (0.0-5.0); BG HCO3 ACT 26.4 mmol/L (22.0-26.0); BG METHEMOGLOBIN 0.2 % (0.0-1.5); BG OXYGEN SATURATION 94.7 % (92.0-98.5); BG OXYHEMOGLOBIN 94.1 % (94.0-97.0); BG PCO2 53.6 mmHg (35.0-45.0); BG PO2 78.4 mmHg (75.0-100.0); BG SAMPLE SITE RIGHT RADIAL; BG TOTAL HEMOGLOBIN 14.6 g/dL (12.0-18.0); BG VENT MODE VENT - CPAP
[2021-05-04] MEDS: ACETYLCYSTEINE 100MG/ML 10% VIAL 4ML INH SCH ×2 (12:42→21:09)
[2021-05-05] VITALS (81 sets, daily range): BP systolic 67–195; BP diastolic 25–111
[2021-05-05] MEDS ORDERED: HYDRALAZINE 20MG/ML VIAL IV SCH
[2021-05-05] MEDS: IPRATROPIUM/ALBUTEROL 0.5-3(2.5)MG/3ML NEB HHN SCH ×5 (00:29→16:37)
[2021-05-05] MEDS: ENALAPRIL 2.5MG/2ML VIAL 2ML IV PRN ×3 (01:29→15:43)
[2021-05-05] MEDS: METHYLPREDNISOLONE SOD SUCC 40 MG/ML VIAL IV SCH ×4 (05:00→23:54)
[2021-05-05] MEDS: INSULIN LISPRO 100 UNITS/ML SUBCUT SCH ×4 (06:00→18:58)
[2021-05-05 06:10] LABS: HEMATOCRIT. 40.9 % (42.0-52.0); HEMOGLOBIN. 13.3 g/dL (14.0-18.0); MEAN CORPUSCULAR HEMOGLOBIN 29.2 pg (28.0-32.0); MEAN CORPUSCULAR VOLUME 89.8 fL (80.0-94.0); PLATELET 282 x1000/uL (130-400); RED BLOOD CELL COUNT 4.55 mill/uL (4.7-6.1); RED CELL DISTRIBUTION WIDTH 14.7 % (11.6-14.6)
[2021-05-05] MEDS: BLOOD SUGAR DIAGNOSTIC STRIP TEST SCH ×5 (06:46→23:55)
[2021-05-05] MEDS: DOCUSATE SODIUM SUGAR FREE 100MG/10ML UDC NG SCH (08:11)
[2021-05-05] MEDS: HYDRALAZINE HCL 25MG TABLET PO SCH ×3 (08:11→22:00)
[2021-05-05] MEDS: AMLODIPINE 10MG TABLET PO SCH (08:12)
[2021-05-05] MEDS: PANTOPRAZOLE SODIUM 40 MG/VIAL IV SCH (08:12)
[2021-05-05] MEDS: FUROSEMIDE 40MG/4ML VIAL IVP SCH (08:12)
[2021-05-05] MEDS: METOPROLOL TARTRATE 25MG TABLET PO SCH ×2 (08:12→21:00)
[2021-05-05] MEDS: ENOXAPARIN 40MG/0.4ML SYR SUBCUT SCH (08:13)
[2021-05-05] MEDS: ACETYLCYSTEINE 100MG/ML 10% VIAL 4ML INH SCH ×2 (08:31→16:36)
[2021-05-05] MEDS: HYDRALAZINE 20MG/ML VIAL IV PRN (08:33)
[2021-05-05] MEDS: DEXTROSE 5% WATER 1,000 ML IV SCH (08:34)
[2021-05-05 08:56] LABS: BG BASE EXCESS 4.5 mmol/L (-2.0-2.0); BG CARBOXYHEMOGLOBIN 0.2 % (0.5-1.5); BG DEOXYHEMOGLOBIN 4.4 % (0.0-5.0); BG FRACTION INSPIRED OXYGEN 40; BG HCO3 ACT 33.1 mmol/L (22.0-26.0); BG METHEMOGLOBIN 0.3 % (0.0-1.5); BG OXYGEN SATURATION 95.6 % (92.0-98.5); BG OXYHEMOGLOBIN 95.1 % (94.0-97.0); BG PCO2 67.5 mmHg (35.0-45.0); BG PH 7.308 (7.350-7.450); BG PO2 88.6 mmHg (75.0-100.0); BG SAMPLE SITE RIGHT RADIAL; BG TOTAL HEMOGLOBIN 14.7 g/dL (12.0-18.0); BG VENT MODE COOL AEROSOL
[2021-05-05] MEDS ORDERED: RACEPINEPHRINE 2.25% 0.5ML NEB VIAL HHN PRN (09:30)
[2021-05-05] MEDS ORDERED: RACEPINEPHRINE 2.25% 0.5ML NEB VIAL HHN NR (09:30)
[2021-05-05 14:24] LABS: PLATELET ESTIMATE NORMAL
[2021-05-05 15:50] LABS: BG CARBOXYHEMOGLOBIN 0.5 % (0.5-1.5); BG DEOXYHEMOGLOBIN 1.9 % (0.0-5.0); BG FRACTION INSPIRED OXYGEN 40; BG HCO3 ACT 30.3 mmol/L (22.0-26.0); BG METHEMOGLOBIN 0.4 % (0.0-1.5); BG OXYGEN SATURATION 98.1 % (92.0-98.5); BG OXYHEMOGLOBIN 97.2 % (94.0-97.0); BG PCO2 51.5 mmHg (35.0-45.0); BG PH 7.387 (7.350-7.450); BG PO2 114.9 mmHg (75.0-100.0); BG SAMPLE SITE LEFT RADIAL; BG TOTAL HEMOGLOBIN 15.7 g/dL (12.0-18.0); BG TOTAL RESPIRATORY RATE 21 b/min; BG VENT MODE MASK - BIPAP
[2021-05-06] VITALS (13 sets, daily range): BP systolic 110–166; BP diastolic 54–100
[2021-05-06] MEDS: INSULIN LISPRO 100 UNITS/ML SUBCUT SCH ×4 (00:01→18:26)
[2021-05-06] MEDS: HYDRALAZINE 20MG/ML VIAL IV PRN (00:52)
[2021-05-06] MEDS: ACETYLCYSTEINE 100MG/ML 10% VIAL 4ML INH SCH ×2 (02:30→07:48)
[2021-05-06] MEDS: IPRATROPIUM/ALBUTEROL 0.5-3(2.5)MG/3ML NEB HHN SCH ×6 (02:30→21:42)
[2021-05-06] MEDS: METHYLPREDNISOLONE SOD SUCC 40 MG/ML VIAL IV SCH ×3 (05:38→17:00)
[2021-05-06] MEDS: HYDRALAZINE HCL 25MG TABLET PO SCH ×4 (05:41→21:57)
[2021-05-06] MEDS: BLOOD SUGAR DIAGNOSTIC STRIP TEST SCH ×3 (05:42→18:15)
[2021-05-06 06:49] LABS: HEMATOCRIT. 43.7 % (42.0-52.0); MEAN CORPUSCULAR HEMOGLOBIN 28.8 pg (28.0-32.0); MEAN CORPUSCULAR VOLUME 89.5 fL (80.0-94.0); PLATELET 293 x1000/uL (130-400); RED BLOOD CELL COUNT 4.88 mill/uL (4.7-6.1); RED CELL DISTRIBUTION WIDTH 14.3 % (11.6-14.6)
[2021-05-06 07:48] LABS: PHOSPHORUS 4.4 mg/dL (2.5-4.9)
[2021-05-06] MEDS: DOCUSATE SODIUM SUGAR FREE 100MG/10ML UDC NG SCH ×2 (08:56→09:00)
[2021-05-06] MEDS: FUROSEMIDE 40MG/4ML VIAL IVP SCH (08:57)
[2021-05-06] MEDS: PANTOPRAZOLE SODIUM 40 MG/VIAL IV SCH (08:57)
[2021-05-06] MEDS: AMLODIPINE 10MG TABLET PO SCH (09:00)
[2021-05-06] MEDS: METOPROLOL TARTRATE 25MG TABLET PO SCH ×2 (09:00→21:57)
[2021-05-06] MEDS: ENOXAPARIN 40MG/0.4ML SYR SUBCUT SCH (09:01)
[2021-05-06] MEDS: DEXTROSE 5% WATER 1,000 ML IV SCH (10:00)
[2021-05-06] MEDS ORDERED: SODIUM POLYSTYRENE SULFONATE 15 G/60 ML BOT PO SCH (11:00)
[2021-05-06 12:45] LABS: PLATELET ESTIMATE NORMAL
[2021-05-06] MEDS: LORAZEPAM 2MG/ML CPJ IV PRN (17:20)
[2021-05-07] VITALS (19 sets, daily range): BP systolic 116–193; BP diastolic 47–124
[2021-05-07] MEDS: IPRATROPIUM/ALBUTEROL 0.5-3(2.5)MG/3ML NEB HHN SCH ×6 (00:07→21:41)
[2021-05-07] MEDS: ACETYLCYSTEINE 100MG/ML 10% VIAL 4ML INH SCH ×4 (00:07→21:42)
[2021-05-07] MEDS: INSULIN LISPRO 100 UNITS/ML SUBCUT SCH ×4 (00:33→17:27)
[2021-05-07] MEDS: BLOOD SUGAR DIAGNOSTIC STRIP TEST SCH ×4 (00:33→17:24)
[2021-05-07] MEDS: DEXTROSE 5% WATER 1,000 ML IV SCH ×2 (01:13→16:46)
[2021-05-07] MEDS: HYDRALAZINE HCL 25MG TABLET PO SCH ×3 (06:21→21:46)
[2021-05-07 07:08] LABS: BASOPHILS % 0.1 % (0.0-2.0); EOSINOPHILS % 0.6 % (0.0-5.0); HEMATOCRIT. 44.7 % (42.0-52.0); HEMOGLOBIN. 14.3 g/dL (14.0-18.0); LYMPHOCYTES % 11.5 % (20.0-50.0); MEAN CORPUSCULAR HEMOGLOBIN 28.8 pg (28.0-32.0); MEAN CORPUSCULAR VOLUME 90.2 fL (80.0-94.0); MEAN PLATELET VOLUME 9.2 fl (7.4-10.4); MONOCYTES % 4.7 % (2.0-8.0); NEUTROPHILS % 83.1 % (40.0-76.0); PLATELET 289 x1000/uL (130-400); RED BLOOD CELL COUNT 4.95 mill/uL (4.7-6.1); RED CELL DISTRIBUTION WIDTH 14.6 % (11.6-14.6)
[2021-05-07 07:45] LABS: PHOSPHORUS 4.3 mg/dL (2.5-4.9)
[2021-05-07] MEDS: METHYLPREDNISOLONE SOD SUCC 40 MG/ML VIAL IV SCH ×2 (09:07→16:46)
[2021-05-07] MEDS: PANTOPRAZOLE SODIUM 40 MG/VIAL IV SCH (09:07)
[2021-05-07] MEDS: METOPROLOL TARTRATE 25MG TABLET PO SCH ×2 (09:08→21:46)
[2021-05-07] MEDS: FUROSEMIDE 40MG/4ML VIAL IVP SCH (09:08)
[2021-05-07] MEDS: ENOXAPARIN 40MG/0.4ML SYR SUBCUT SCH (09:09)
[2021-05-07] MEDS: DOCUSATE SODIUM SUGAR FREE 100MG/10ML UDC NG SCH (09:09)
[2021-05-07] MEDS: AMLODIPINE 10MG TABLET PO SCH (09:10)
[2021-05-08] VITALS (14 sets, daily range): BP systolic 97–148; BP diastolic 53–105
[2021-05-08] MEDS: BLOOD SUGAR DIAGNOSTIC STRIP TEST SCH ×5 (00:32→23:31)
[2021-05-08] MEDS: INSULIN LISPRO 100 UNITS/ML SUBCUT SCH ×5 (00:43→23:33)
[2021-05-08] MEDS: IPRATROPIUM/ALBUTEROL 0.5-3(2.5)MG/3ML NEB HHN SCH ×7 (01:08→23:52)
[2021-05-08] MEDS: ACETYLCYSTEINE 100MG/ML 10% VIAL 4ML INH SCH ×3 (01:08→23:52)
[2021-05-08] MEDS: HYDRALAZINE HCL 25MG TABLET PO SCH ×3 (05:53→22:07)
[2021-05-08 06:55] LABS: BASOPHILS % 0.3 % (0.0-2.0); EOSINOPHILS % 0.3 % (0.0-5.0); HEMATOCRIT. 44.2 % (42.0-52.0); HEMOGLOBIN. 14.1 g/dL (14.0-18.0); LYMPHOCYTES % 11.9 % (20.0-50.0); MEAN CORPUSCULAR HEMOGLOBIN 28.4 pg (28.0-32.0); MEAN CORPUSCULAR VOLUME 89.4 fL (80.0-94.0); MEAN PLATELET VOLUME 9.7 fl (7.4-10.4); MONOCYTES % 5.5 % (2.0-8.0); PLATELET 295 x1000/uL (130-400); RED BLOOD CELL COUNT 4.95 mill/uL (4.7-6.1); RED CELL DISTRIBUTION WIDTH 13.7 % (11.6-14.6)
[2021-05-08] MEDS: AMLODIPINE 10MG TABLET PO SCH (08:39)
[2021-05-08] MEDS: METOPROLOL TARTRATE 25MG TABLET PO SCH ×2 (08:40→21:07)
[2021-05-08] MEDS: METHYLPREDNISOLONE SOD SUCC 40 MG/ML VIAL IV SCH ×2 (08:40→17:59)
[2021-05-08] MEDS: FUROSEMIDE 40MG/4ML VIAL IVP SCH (08:40)
[2021-05-08] MEDS: ENOXAPARIN 40MG/0.4ML SYR SUBCUT SCH (08:41)
[2021-05-08] MEDS: DOCUSATE SODIUM SUGAR FREE 100MG/10ML UDC NG SCH (08:42)
[2021-05-08] MEDS: PANTOPRAZOLE SODIUM 40 MG/VIAL IV SCH (08:42)
[2021-05-08] MEDS ORDERED: DILTIAZEM HCL 30MG TABLET PO SCH (10:00)
[2021-05-08 22:12] LABS: INR 1.1; PROTHROMBIN TIME 11.9 sec (9.6-11.0)
[2021-05-09] VITALS (12 sets, daily range): BP systolic 104–159; BP diastolic 50–94
[2021-05-09] MEDS: IPRATROPIUM/ALBUTEROL 0.5-3(2.5)MG/3ML NEB HHN SCH ×4 (03:16→20:24)
[2021-05-09] MEDS: BLOOD SUGAR DIAGNOSTIC STRIP TEST SCH ×3 (05:25→17:37)
[2021-05-09] MEDS: HYDRALAZINE HCL 25MG TABLET PO SCH ×3 (05:25→22:36)
[2021-05-09] MEDS: ACETYLCYSTEINE 100MG/ML 10% VIAL 4ML INH SCH ×2 (06:00→13:51)
[2021-05-09] MEDS: INSULIN LISPRO 100 UNITS/ML SUBCUT SCH ×3 (06:00→17:48)
[2021-05-09 07:47] LABS: BASOPHILS % 0.5 % (0.0-2.0); EOSINOPHILS % 0.3 % (0.0-5.0); HEMATOCRIT. 42.5 % (42.0-52.0); HEMOGLOBIN. 13.9 g/dL (14.0-18.0); LYMPHOCYTES % 11.6 % (20.0-50.0); MEAN CORPUSCULAR VOLUME 88.6 fL (80.0-94.0); MEAN PLATELET VOLUME 10.5 fl (7.4-10.4); MONOCYTES % 5.4 % (2.0-8.0); NEUTROPHILS % 82.2 % (40.0-76.0); PLATELET 277 x1000/uL (130-400); RED CELL DISTRIBUTION WIDTH 13.8 % (11.6-14.6)
[2021-05-09 08:18] LABS: PHOSPHORUS 4.2 mg/dL (2.5-4.9)
[2021-05-09] MEDS: PANTOPRAZOLE SODIUM 40 MG/VIAL IV SCH (08:54)
[2021-05-09] MEDS: DOCUSATE SODIUM SUGAR FREE 100MG/10ML UDC NG SCH (08:54)
[2021-05-09] MEDS: FUROSEMIDE 40MG/4ML VIAL IVP SCH (08:54)
[2021-05-09] MEDS: METHYLPREDNISOLONE SOD SUCC 40 MG/ML VIAL IV SCH ×2 (08:54→17:37)
[2021-05-09] MEDS: ENOXAPARIN 30MG/0.3ML SYR SUBCUT SCH ×2 (08:58→21:24)
[2021-05-09] MEDS: METOPROLOL TARTRATE 25MG TABLET PO SCH ×2 (08:58→21:23)
[2021-05-09] MEDS: AMLODIPINE 10MG TABLET PO SCH (08:58)
[2021-05-09] MEDS: ACETAMINOPHEN 650MG/20.3ML UDC PO PRN (09:11)
[2021-05-09] MEDS: GUAIFENESIN-DM 200MG-20MG/10ML UDC PO PRN (13:41)
[2021-05-10] VITALS (12 sets, daily range): BP systolic 109–163; BP diastolic 60–95
[2021-05-10] MEDS: IPRATROPIUM/ALBUTEROL 0.5-3(2.5)MG/3ML NEB HHN SCH ×5 (01:09→21:04)
[2021-05-10] MEDS: BLOOD SUGAR DIAGNOSTIC STRIP TEST SCH ×4 (05:35→17:17)
[2021-05-10] MEDS: HYDRALAZINE HCL 25MG TABLET PO SCH ×3 (05:38→22:37)
[2021-05-10] MEDS: INSULIN LISPRO 100 UNITS/ML SUBCUT SCH ×4 (05:39→17:55)
[2021-05-10 07:59] LABS: BASOPHILS % 0.2 % (0.0-2.0); EOSINOPHILS % 0.3 % (0.0-5.0); HEMATOCRIT. 41.3 % (42.0-52.0); HEMOGLOBIN. 13.5 g/dL (14.0-18.0); LYMPHOCYTES % 11.2 % (20.0-50.0); MEAN CORPUSCULAR HEMOGLOBIN 29.2 pg (28.0-32.0); MEAN CORPUSCULAR VOLUME 89.5 fL (80.0-94.0); MEAN PLATELET VOLUME 10.8 fl (7.4-10.4); MONOCYTES % 5.1 % (2.0-8.0); NEUTROPHILS % 83.2 % (40.0-76.0); PLATELET 215 x1000/uL (130-400); RED BLOOD CELL COUNT 4.61 mill/uL (4.7-6.1); RED CELL DISTRIBUTION WIDTH 13.2 % (11.6-14.6)
[2021-05-10] MEDS: GUAIFENESIN-DM 200MG-20MG/10ML UDC PO PRN ×2 (08:12→17:44)
[2021-05-10] MEDS: DOCUSATE SODIUM SUGAR FREE 100MG/10ML UDC NG SCH (08:12)
[2021-05-10] MEDS: METOPROLOL TARTRATE 25MG TABLET PO SCH ×2 (08:12→20:23)
[2021-05-10] MEDS: AMLODIPINE 10MG TABLET PO SCH (08:12)
[2021-05-10] MEDS: FUROSEMIDE 40MG/4ML VIAL IVP SCH (08:14)
[2021-05-10] MEDS: PANTOPRAZOLE SODIUM 40 MG/VIAL IV SCH (08:14)
[2021-05-10] MEDS: METHYLPREDNISOLONE SOD SUCC 40 MG/ML VIAL IV SCH ×2 (08:14→17:44)
[2021-05-10] MEDS: ENOXAPARIN 30MG/0.3ML SYR SUBCUT SCH (08:16)
[2021-05-10] MEDS ORDERED: DILTIAZEM HCL 5MG/ML 5ML VIAL IV NR (11:30)
[2021-05-10] MEDS: DILTIAZEM HCL 60MG TABLET PO SCH ×2 (11:54→17:45)
[2021-05-10] MEDS: ENOXAPARIN 120MG/0.8ML SYR SUBCUT SCH ×2 (12:01→22:37)
[2021-05-11] VITALS (12 sets, daily range): BP systolic 106–161; BP diastolic 53–90
[2021-05-11] MEDS: DILTIAZEM HCL 60MG TABLET PO SCH ×5 (00:57→23:04)
[2021-05-11] MEDS: GUAIFENESIN-DM 200MG-20MG/10ML UDC PO PRN ×4 (00:57→21:02)
[2021-05-11] MEDS: INSULIN LISPRO 100 UNITS/ML SUBCUT SCH ×5 (01:02→23:07)
[2021-05-11] MEDS: IPRATROPIUM/ALBUTEROL 0.5-3(2.5)MG/3ML NEB HHN SCH ×6 (01:07→20:53)
[2021-05-11] MEDS: BLOOD SUGAR DIAGNOSTIC STRIP TEST SCH ×5 (05:22→23:04)
[2021-05-11] MEDS: HYDRALAZINE HCL 25MG TABLET PO SCH ×3 (05:22→22:59)
[2021-05-11] MEDS: SODIUM CHLORIDE 45ML SPRAY NS PRN ×2 (05:27→08:27)
[2021-05-11] MEDS: FUROSEMIDE 40MG/4ML VIAL IVP SCH (08:28)
[2021-05-11] MEDS: DOCUSATE SODIUM SUGAR FREE 100MG/10ML UDC NG SCH (08:28)
[2021-05-11] MEDS: METOPROLOL TARTRATE 25MG TABLET PO SCH ×2 (08:28→21:03)
[2021-05-11] MEDS: PANTOPRAZOLE SODIUM 40 MG/VIAL IV SCH (08:29)
[2021-05-11] MEDS: METHYLPREDNISOLONE SOD SUCC 40 MG/ML VIAL IV SCH ×2 (08:29→17:08)
[2021-05-11] MEDS: AMLODIPINE 10MG TABLET PO SCH (08:29)
[2021-05-11 08:53] LABS: BG BASE EXCESS 1.4 mmol/L (-2.0-2.0); BG CARBOXYHEMOGLOBIN 0.7 % (0.5-1.5); BG FRACTION INSPIRED OXYGEN 45; BG HCO3 ACT 28.4 mmol/L (22.0-26.0); BG METHEMOGLOBIN 0.4 % (0.0-1.5); BG OXYHEMOGLOBIN 97.9 % (94.0-97.0); BG PCO2 54.7 mmHg (35.0-45.0); BG PH 7.333 (7.350-7.450); BG PO2 147.9 mmHg (75.0-100.0); BG SAMPLE SITE RIGHT RADIAL; BG TOTAL HEMOGLOBIN 14.3 g/dL (12.0-18.0); BG VENT MODE MASK - BIPAP
[2021-05-11] MEDS: ENOXAPARIN 120MG/0.8ML SYR SUBCUT SCH ×2 (10:57→22:59)
[2021-05-11] MEDS: LORAZEPAM 1MG TABLET PO PRN (18:06)
[2021-05-12] VITALS (13 sets, daily range): BP systolic 106–145; BP diastolic 50–102
[2021-05-12] MEDS: IPRATROPIUM/ALBUTEROL 0.5-3(2.5)MG/3ML NEB HHN SCH ×6 (01:25→20:28)
[2021-05-12] MEDS: BLOOD SUGAR DIAGNOSTIC STRIP TEST SCH ×4 (06:00→21:59)
[2021-05-12] MEDS: DILTIAZEM HCL 60MG TABLET PO SCH ×3 (06:34→18:45)
[2021-05-12] MEDS: HYDRALAZINE HCL 25MG TABLET PO SCH ×2 (06:34→14:32)
[2021-05-12] MEDS: GUAIFENESIN-DM 200MG-20MG/10ML UDC PO PRN (06:34)
[2021-05-12] MEDS: INSULIN LISPRO 100 UNITS/ML SUBCUT SCH ×4 (06:35→22:02)
[2021-05-12] MEDS ORDERED: DEXTROSE 50% WATER 50ML SYRINGE IV PRN (07:45)
[2021-05-12 08:02] LABS: HEMATOCRIT. 39.6 % (42.0-52.0); MEAN CORPUSCULAR HEMOGLOBIN 29.3 pg (28.0-32.0); MEAN CORPUSCULAR VOLUME 89.2 fL (80.0-94.0); MEAN PLATELET VOLUME 10.9 fl (7.4-10.4); PLATELET 235 x1000/uL (130-400); RED BLOOD CELL COUNT 4.44 mill/uL (4.7-6.1); RED CELL DISTRIBUTION WIDTH 13.6 % (11.6-14.6)
[2021-05-12 08:11] LABS: PHOSPHORUS 2.7 mg/dL (2.5-4.9)
[2021-05-12] MEDS: PANTOPRAZOLE SODIUM 40 MG/VIAL IV SCH (08:41)
[2021-05-12] MEDS: FUROSEMIDE 40MG/4ML VIAL IVP SCH (08:41)
[2021-05-12] MEDS: METHYLPREDNISOLONE SOD SUCC 40 MG/ML VIAL IV SCH ×2 (08:41→18:45)
[2021-05-12] MEDS: DOCUSATE SODIUM SUGAR FREE 100MG/10ML UDC NG SCH (08:42)
[2021-05-12] MEDS: AMLODIPINE 10MG TABLET PO SCH (08:42)
[2021-05-12] MEDS: METOPROLOL TARTRATE 25MG TABLET PO SCH ×2 (08:42→22:00)
[2021-05-12] MEDS: LORAZEPAM 1MG TABLET PO PRN (11:10)
[2021-05-12] MEDS: ENOXAPARIN 120MG/0.8ML SYR SUBCUT SCH (11:57)
[2021-05-12 13:59] LABS: BG BASE EXCESS 1.3 mmol/L (-2.0-2.0); BG CARBOXYHEMOGLOBIN 0.7 % (0.5-1.5); BG FRACTION INSPIRED OXYGEN 21; BG HCO3 ACT 25.9 mmol/L (22.0-26.0); BG METHEMOGLOBIN 0.3 % (0.0-1.5); BG OXYGEN SATURATION 94.9 % (92.0-98.5); BG PCO2 41.3 mmHg (35.0-45.0); BG PH 7.416 (7.350-7.450); BG PO2 71.4 mmHg (75.0-100.0); BG SAMPLE SITE RIGHT RADIAL; BG TOTAL HEMOGLOBIN 14.8 g/dL (12.0-18.0); BG VENT MODE ROOM AIR
[2021-05-12 16:47] LABS: PLATELET ESTIMATE NORMAL
[2021-05-13] MEDS ORDERED: FLUT1DIS3 INH (11:36)
[2021-05-13] MEDS ORDERED: ALBU18HF2 IH (11:36)
[2021-05-13] MEDS ORDERED: FURO-151 MT (11:36)
[2021-05-13] MEDS ORDERED: DILT120C88 MT (11:36)
== END 2021-05-12 23:33 | disposition home or self-care (01) | DRG 720 ==
LOC: ER 04:20 → ENRESERV 22:15 → MICUSO 23:01 → 3WST 05-05 20:02
PROVIDERS: ADMIT Internal Medicine; ATTEND Internal Medicine
PROC: 5A1955Z Respiratory Ventilation, Greater than 96 Consecutive Hours (ICD-10-PCS; principal; 2021-04-27)
PROC: 0BH17EZ Insertion of Endotracheal Airway into Trachea, Via Natural or Artificial Opening (ICD-10-PCS; 2021-04-27)
PROC: 05H533Z Insertion of Infusion Device into Right Subclavian Vein, Percutaneous Approach (ICD-10-PCS; 2021-04-27)
PROC: 3E0A3GC Introduction of Other Therapeutic Substance into Bone Marrow, Percutaneous Approach (ICD-10-PCS; 2021-04-27)
PROC: 5A09357 Assistance with Respiratory Ventilation, Less than 24 Consecutive Hours, Continuous Positive Airway Pressure (ICD-10-PCS; 2021-05-04)
PROC: 5A09357 Assistance with Respiratory Ventilation, Less than 24 Consecutive Hours, Continuous Positive Airway Pressure (ICD-10-PCS; 2021-05-05)
PROC: 5A09357 Assistance with Respiratory Ventilation, Less than 24 Consecutive Hours, Continuous Positive Airway Pressure (ICD-10-PCS; 2021-05-06)
PROC: 5A09357 Assistance with Respiratory Ventilation, Less than 24 Consecutive Hours, Continuous Positive Airway Pressure (ICD-10-PCS; 2021-05-07)
PROC: 5A09557 Assistance with Respiratory Ventilation, Greater than 96 Consecutive Hours, Continuous Positive Airway Pressure (ICD-10-PCS; 2021-05-08)
PROC: 5A09357 Assistance with Respiratory Ventilation, Less than 24 Consecutive Hours, Continuous Positive Airway Pressure (ICD-10-PCS; 2021-05-12)
DX: A41.9 Sepsis, unspecified organism (principal); J96.01 Acute respiratory failure with hypoxia; J96.02 Acute respiratory failure with hypercapnia; J44.1 Chronic obstructive pulmonary disease with (acute) exacerbation; N17.9 Acute kidney failure, unspecified; E11.22 Type 2 diabetes mellitus with diabetic chronic kidney disease; J90 Pleural effusion, not elsewhere classified; E44.1 Mild protein-calorie malnutrition; E87.8 Other disorders of electrolyte and fluid balance, not elsewhere classified; N18.9 Chronic kidney disease, unspecified; I13.10 Hypertensive heart and chronic kidney disease without heart failure, with stage 1 through stage 4 chronic kidney disease, or unspecified chronic kidney disease; F15.10 Other stimulant abuse, uncomplicated; F12.10 Cannabis abuse, uncomplicated; G47.33 Obstructive sleep apnea (adult) (pediatric); I48.0 Paroxysmal atrial fibrillation; J98.11 Atelectasis; Z86.16 Personal history of COVID-19; Z87.01 Personal history of pneumonia (recurrent); Z88.8 Allergy status to other drugs, medicaments and biological substances; Z79.899 Other long term (current) drug therapy; Z78.1 Physical restraint status; Y92.89 Other specified places as the place of occurrence of the external cause; F14.10 Cocaine abuse, uncomplicated
CPT/HCPCS: 36415; 36600; 71045; 76770; 78580; 80048; 80053; 80305; 81003; 82140; 82375; 82550; 82575; 82805; 82962; 83036; 83605; 83735; 83880; 84100; 84145; 84478; 84484; 85025; 86038; 86160; 87070; 87426; 92610; 93005; 93306; 93970; 94002; 94003; 94640; 94660; 97162; 99291; A6261; C9113; C9803; J0330; J0360; J1650; J1815; J1940; J1956; J2060; J2250; J2543; J2704; J2920; J2930; J3010; J3475; J3480; J3490; J7050; J7060; J7070; J7608; U0003; U0005